=== PATIENT | male | born 1965 | race Caucasian/White ===

== ENCOUNTER 2018-02-12 00:41 | Outpatient (CLI) | payer MEDICARE, SELFPAY ==
--- NOTE | 2018-02-12 09:45 | DI.RAD_ITS ---
SYMPTOMS/DIAGNOSIS: PNEUMONIA. J18.9 PA AND LATERAL CHEST: Comparison 07/19/17. The heart is enlarged but stable. The pulmonary vasculature are within normal limits. Pacing wires are stable in position. Sternal wires are in place. The lungs are clear. No effusions or pneumothoraces are identified. The bones appear intact. IMPRESSION: Cardiomegaly. No acute pulmonary process.
== END 2018-02-12 01:01 ==
PROVIDERS: PCP Family Medicine; Visit Provider Family Medicine
DX: J18.9 Pneumonia, unspecified organism (principal); I51.7 Cardiomegaly; Z95.0 Presence of cardiac pacemaker
CPT/HCPCS: 71046

== ENCOUNTER → 2018-05-29 11:13 | Outpatient (BNVA) | payer MEDICARE, SELFPAY | PROVIDERS: PCP Family Medicine; Visit Provider Nurse Practitioner Family | DX: R69 Illness, unspecified (principal) ==

== ENCOUNTER 2018-05-29 12:12 | Outpatient (CLI) | payer MEDICARE, SELFPAY ==
[2018-05-29 12:38] LABS: HCT 39.2 % (40.0-50.0); HGB 13.3 g/dL (13.5-17.5); Mean Corp. HGB Concentration 33.9 g/dL (32.0-36.0); Mean Corpuscular Hemoglobin 30.7 pg (27.0-33.0); Mean Corpuscular Volume 90.5 fL (80-95); Mean Platelet Volume 9.1 fL (8.0-11.0); Platelet Count 270 x1000/uL (130-400); RBC 4.33 m/cumm (4.50-6.00); RBC Distribution Width 14.8 % (11.8-14.1); White Blood Cell Count 9.41 k/cumm (4.4-10.8)
[2018-05-29 13:30] LABS: Anion Gap 7.1 mmol/L (3-11); BUN 18 mg/dL (7-18); CO2 31.9 mmol/L (21.0-32.0); CREATININE 1.08 mg/dL (0.70-1.30); Calcium 9.5 mg/dL (8.5-10.1); Chloride 101 mmol/L (98-107); Glucose 149 mg/dL (70-100); Magnesium 2.1 mg/dL (1.8-2.4); NT-proBNP 1498 pg/mL; Potassium 4.6 mmol/L (3.5-5.1); Sodium 140 mmol/L (136-145); TSH 2.64 uIU/mL (0.358-3.74)
== END 2018-05-29 12:32 ==
PROVIDERS: PCP Family Medicine; Visit Provider Nurse Practitioner Family
DX: I10 Essential (primary) hypertension (principal); R06.02 Shortness of breath; I25.5 Ischemic cardiomyopathy; I25.10 Atherosclerotic heart disease of native coronary artery without angina pectoris; E11.9 Type 2 diabetes mellitus without complications; E78.5 Hyperlipidemia, unspecified; Z86.74 Personal history of sudden cardiac arrest; Z45.02 Encounter for adjustment and management of automatic implantable cardiac defibrillator; Z79.4 Long term (current) use of insulin
CPT/HCPCS: 36415; 80048; 85027; 93289; 83735; 83880; 84443; 99213

== ENCOUNTER 2018-08-08 14:09 | Emergency (ER) | payer MEDICARE, SELFPAY ==
[2018-08-08 14:11] VITALS: BP 127/73; PULSE 71; RESP 12; TEMP 36.8; O2SAT 95
--- NOTE | 2018-08-08 14:14 | W.ED.GENAD ---
Discharge Plan Disposition Patient Disposition: HOME Condition: Stable Discharge Details Chief Complaint: Laceration Clinical Impression: Laceration of hand, left Primary Care Provider: Beatrice Alcala ED Provider: Vicente Vallejo [place] Meds and New Rx's Prescriptions: No Action clopidogrel [Plavix] 75 MG tablet 75 mg PO DAILY RF: 0 aspirin [Aspir-81] 81 MG tablet,delayed release (DR/EC) 81 mg PO DAILY RF: 0 nitroglycerin 0.4 MG tablet, sublingual 0.4 mg Sublingual PRN RF: 0 spironolactone 25 MG tablet 25 mg PO DAILY RF: 0 isosorbide mononitrate 30 MG tablet extended release 24 hr 30 mg PO DAILY Qty: 30 RF: 0 atorvastatin [Lipitor] 80 MG tablet 40 mg PO DAILY RF: 0 FreeStyle Lite Strips 1 EACH strip AC & HS RF: 0 pen needle, diabetic [BD Ultra-Fine Short Pen Needle] 1 EACH needle 1 AC & HS RF: 0 carvedilol 12.5 MG tablet 12.5 mg PO BID RF: 0 amiodarone [Cordarone] 200 MG tablet 1 tab PO DAILY RF: 0 zolpidem 10 MG tablet 10 mg PO HS PRN PRNRF: 0 metolazone 2.5 MG tablet 2.5 mg PO DIRECTED Qty: 24 RF: 1 albuterol sulfate [ProAir HFA] 8.5 GM HFA aerosol inhaler 8.5 gm Inhalation QID PRN PRNQty: 1 RF: 0 Levemir FlexTouch U-100 Insuln 100 UNIT/ML insulin pen 30 units SQ HS RF: 0 furosemide [Lasix] 80 MG tablet 80 mg PO DAILY Qty: 30 RF: 3 lisinopril 2.5 MG tablet 2.5 mg PO DAILY Qty: 30 RF: 3 Discharge Instructions Instructions: Laceration (ED) Additional Instructions: if redness spreads down the hand or up the finger, or you have yellow/white discharge from the wound return to the emergency department for reevaluation return in 7-10 days to have the wound evaluated for suture removal Medical Decision Making 52 yo male comes in with laceration to the posterior left thumb at the mcp joint. he was using a paint scraper device about 2 hours ago and slipped and caused the lac, last tetnus vaccine 2015. Denies falling or other injuries. Has a 1.5cm laceration to the area, intact sensation, cap refill, and full rom so doubt neurovascular injury or tendon injury and lac only goes to the subcutaneous tissue. Will clsoe with sutures and d/c Differential Diagnosis lac, abrasion HPI General Mode of arrival: ambulatory. Date/Time Provider Initiated Documentation: 08/08/18 14:09. Limitations to Documentation: no limitations. Information obtained by: patient. History of Present Illness 52 year old M presents to the emergency department with the chief complaint of left thumb laceration, described as mild, and is localized to the left and upper extremity. Patient reports no radiation. Patient started experiencing this hour(s) (3) and it has been constant. No relieving factors improve symptom(s), No exacerbating factors reported . Patient notes no other symptoms.. Patient did receive the following treatments prior to arrival, none Related Data Home Medications Medication Instructions Recorded Confirmed aspirin [Aspir-81] 81 mg PO DAILY 08/14/13 05/30/18 clopidogrel [Plavix] 75 mg PO DAILY 08/14/13 05/30/18 nitroglycerin 0.4 mg SUBLINGUAL PRN 08/14/13 05/30/18 spironolactone 25 mg PO DAILY 04/24/14 05/30/18 isosorbide mononitrate 30 mg PO DAILY #30 tabcr 03/14/15 05/30/18 FreeStyle Lite Strips 07/03/15 05/30/18 amiodarone [Cordarone] 2 tab PO DAILY 07/03/15 05/30/18 atorvastatin [Lipitor] 40 mg PO DAILY 07/03/15 05/30/18 carvedilol 12.5 mg PO BID 07/03/15 05/30/18 pen needle, diabetic [BD 07/03/15 05/30/18 Ultra-Fine Short Pen Needle] zolpidem 10 mg PO HS PRN PRN 07/03/15 05/30/18 ProAir HFA 8.5 gm INHALATION QID PRN PRN #1 07/04/15 05/30/18 [email or web address].ad metolazone 2.5 mg PO DIRECTED #24 07/04/15 05/30/18 Levemir FlexTouch U-100 Insuln 30 units SQ HS 05/01/17 05/30/18 furosemide [Lasix] 80 mg PO DAILY #30 tab 05/03/17 05/30/18 lisinopril 2.5 mg PO DAILY #30 tab 05/03/17 05/30/18 Previous Rx's Medication Instructions Recorded isosorbide mononitrate 30 mg PO DAILY #30 tabcr 03/14/15 ProAir HFA 8.5 gm INHALATION QID PRN PRN #1 07/04/15 [email or web address].ad metolazone 2.5 mg PO DIRECTED #24 07/04/15 furosemide [Lasix] 80 mg PO DAILY #30 tab 05/03/17 lisinopril 2.5 mg PO DAILY #30 tab 05/03/17 Allergies Allergy/AdvReac Type Severity Reaction Status Date / Time No Known Allergies Allergy Unverified 08/08/18 14:14 General Stated Complaint: Laceration LEVI: 4 Review of Systems Review of Systems All systems reviewed & are unremarkable except as noted in HPI and below Constitutional Denies chills, Denies fever(s) and Denies weakness ENT Denies change in voice Cardiovascular Denies chest pain and Denies dyspnea Respiratory Denies dyspnea Gastrointestinal Denies abdominal pain, Denies nausea and Denies vomiting Musculoskeletal Denies joint swelling Neurologic Denies weakness [facility] Social History Smoking/Tobacco Use Status: Former Tobacco Use Drug use: Never Do you feel safe at home: Yes Do you feel safe in your relationship?: Yes Exam Const General: no acute distress Orientation: alert HENMT Head: normal to inspection Ears: external ears normal General nose exam: external nose normal Mouth: moist mucous membranes Eyes General: appearance normal, both eyes and all related structures Neck Neck: normal visual inspection Resp Effort & Inspection: normal respiratory effort and able to speak in complete sentences Cardio Rate: regular rate Skin General skin exam: no rashes or lesions noted Neuro General: alert and oriented x3 Extrem General: full ROM and normal capillary refill Psych Mental Status: mental status grossly normal Course Vital Signs Temperature 36.8 C 08/08/18 14:11 Pulse 71 08/08/18 14:11 Respiratory Rate 12 08/08/18 14:11 Blood Pressure 127/73 08/08/18 14:11 Pulse Oximetry 95 08/08/18 14:11 Temperature 36.8 C 08/08/18 14:11 Temperature Source Temporal Artery Scan 08/08/18 14:11 Pulse 71 08/08/18 14:11 Respiratory Rate 12 08/08/18 14:11 Respiratory Effort Non-Labored 08/08/18 14:13 Blood Pressure 127/73 08/08/18 14:11 Pulse Oximetry 95 08/08/18 14:11 Oxygen Delivery Method Room Air 08/08/18 14:11 Oxygen Flow Rate 0 08/08/18 14:11 Pain Level 0 08/08/18 14:11 Procedures Laceration Laceration 1: Site: hand Side (If applicable): left Size (cm): 1.5 Description: linear Depth: simple, single layer Local Anesthetic: Lidocaine 1% and with Epi Amount of anesthesia used (mL): 5 Pre-repair: wound explored, irrigated extensively and wound margins revised Skin layer closed with: nylon Size (cm): 5-0 Number of sutures: 2 Technique: simple, interrupted
--- NOTE | 2018-08-08 14:19 | ED.GENADUL_ITS ---
Discharge Plan Disposition Patient Disposition: HOME Condition: Stable Discharge Details Chief Complaint: Laceration Clinical Impression: Laceration of hand, left Primary Care Provider: Beatrice Alcala ED Provider: Vicente Vallejo [place] Meds and New Rx's Prescriptions: No Action clopidogrel [Plavix] 75 MG tablet 75 mg PO DAILY RF: 0 aspirin [Aspir-81] 81 MG tablet,delayed release (DR/EC) 81 mg PO DAILY RF: 0 nitroglycerin 0.4 MG tablet, sublingual 0.4 mg Sublingual PRN RF: 0 spironolactone 25 MG tablet 25 mg PO DAILY RF: 0 isosorbide mononitrate 30 MG tablet extended release 24 hr 30 mg PO DAILY Qty: 30 RF: 0 atorvastatin [Lipitor] 80 MG tablet 40 mg PO DAILY RF: 0 FreeStyle Lite Strips 1 EACH strip AC & HS RF: 0 pen needle, diabetic [BD Ultra-Fine Short Pen Needle] 1 EACH needle 1 AC & HS RF: 0 carvedilol 12.5 MG tablet 12.5 mg PO BID RF: 0 amiodarone [Cordarone] 200 MG tablet 1 tab PO DAILY RF: 0 zolpidem 10 MG tablet 10 mg PO HS PRN PRNRF: 0 metolazone 2.5 MG tablet 2.5 mg PO DIRECTED Qty: 24 RF: 1 albuterol sulfate [ProAir HFA] 8.5 GM HFA aerosol inhaler 8.5 gm Inhalation QID PRN PRNQty: 1 RF: 0 Levemir FlexTouch U-100 Insuln 100 UNIT/ML insulin pen 30 units SQ HS RF: 0 furosemide [Lasix] 80 MG tablet 80 mg PO DAILY Qty: 30 RF: 3 lisinopril 2.5 MG tablet 2.5 mg PO DAILY Qty: 30 RF: 3 Discharge Instructions Instructions: Laceration (ED) Additional Instructions: if redness spreads down the hand or up the finger, or you have yellow/white discharge from the wound return to the emergency department for reevaluation return in 7-10 days to have the wound evaluated for suture removal Medical Decision Making 52 yo male comes in with laceration to the posterior left thumb at the mcp joint. he was using a paint scraper device about 2 hours ago and slipped and caused the lac, last tetnus vaccine 2015. Denies falling or other injuries. Has a 1.5cm laceration to the area, intact sensation, cap refill, and full rom so doubt neurovascular injury or tendon injury and lac only goes to the subcutaneous tissue. Will clsoe with sutures and d/c Differential Diagnosis lac, abrasion HPI General Mode of arrival: ambulatory . Date/Time Provider Initiated Documentation: 08/08/18 14:09 . Limitations to Documentation: no limitations . Information obtained by: patient . History of Present Illness 52 year old M presents to the emergency department with the chief complaint of left thumb laceration, described as mild, and is localized to the left and upper extremity. Patient reports no radiation. Patient started experiencing this hour(s) (3) and it has been constant. No relieving factors improve symptom(s), No exacerbating factors reported . Patient notes no other symptoms.. Patient did receive the following treatments prior to arrival, none Related Data Home Medications Medication Instructions Recorded Confirmed aspirin [Aspir-81] 81 mg PO DAILY 08/14/13 05/30/18 clopidogrel [Plavix] 75 mg PO DAILY 08/14/13 05/30/18 nitroglycerin 0.4 mg SUBLINGUAL PRN 08/14/13 05/30/18 spironolactone 25 mg PO DAILY 04/24/14 05/30/18 isosorbide mononitrate 30 mg PO DAILY #30 tabcr 03/14/15 05/30/18 FreeStyle Lite Strips 07/03/15 05/30/18 amiodarone [Cordarone] 2 tab PO DAILY 07/03/15 05/30/18 atorvastatin [Lipitor] 40 mg PO DAILY 07/03/15 05/30/18 carvedilol 12.5 mg PO BID 07/03/15 05/30/18 pen needle, diabetic [BD 07/03/15 05/30/18 Ultra-Fine Short Pen Needle] zolpidem 10 mg PO HS PRN PRN 07/03/15 05/30/18 ProAir HFA 8.5 gm INHALATION QID PRN PRN #1 07/04/15 05/30/18 [email or web address].ad metolazone 2.5 mg PO DIRECTED #24 07/04/15 05/30/18 Levemir FlexTouch U-100 Insuln 30 units SQ HS 05/01/17 05/30/18 furosemide [Lasix] 80 mg PO DAILY #30 tab 05/03/17 05/30/18 lisinopril 2.5 mg PO DAILY #30 tab 05/03/17 05/30/18 Previous Rx's Medication Instructions Recorded isosorbide mononitrate 30 mg PO DAILY #30 tabcr 03/14/15 ProAir HFA 8.5 gm INHALATION QID PRN PRN #1 07/04/15 [email or web address].ad metolazone 2.5 mg PO DIRECTED #24 07/04/15 furosemide [Lasix] 80 mg PO DAILY #30 tab 05/03/17 lisinopril 2.5 mg PO DAILY #30 tab 05/03/17 Allergies Allergy/AdvReac Type Severity Reaction Status Date / Time No Known Allergies Allergy Unverified 08/08/18 14:14 General Stated Complaint: Laceration LEVI: 4 Review of Systems Review of Systems All systems reviewed & are unremarkable except as noted in HPI and below Constitutional Denies chills, Denies fever(s) and Denies weakness ENT Denies change in voice Cardiovascular Denies chest pain and Denies dyspnea Respiratory Denies dyspnea Gastrointestinal Denies abdominal pain, Denies nausea and Denies vomiting Musculoskeletal Denies joint swelling Neurologic Denies weakness REPLACED BY [facility] Social History Smoking/Tobacco Use Status: Former Tobacco Use Drug use: Never Do you feel safe at home: Yes Do you feel safe in your relationship?: Yes Exam Const General: no acute distress Orientation: alert HENMT Head: normal to inspection Ears: external ears normal General nose exam: external nose normal Mouth: moist mucous membranes Eyes General: appearance normal, both eyes and all related structures Neck Neck: normal visual inspection Resp Effort & Inspection: normal respiratory effort and able to speak in complete sentences Cardio Rate: regular rate Skin General skin exam: no rashes or lesions noted Neuro General: alert and oriented x3 Extrem General: full ROM and normal capillary refill Psych Mental Status: mental status grossly normal Course Vital Signs Temperature 36.8 C 08/08/18 14:11 Pulse 71 08/08/18 14:11 Respiratory Rate 12 08/08/18 14:11 Blood Pressure 127/73 08/08/18 14:11 Pulse Oximetry 95 08/08/18 14:11 Temperature 36.8 C 08/08/18 14:11 Temperature Source Temporal Artery Scan 08/08/18 14:11 Pulse 71 08/08/18 14:11 Respiratory Rate 12 08/08/18 14:11 Respiratory Effort Non-Labored 08/08/18 14:13 Blood Pressure 127/73 08/08/18 14:11 Pulse Oximetry 95 08/08/18 14:11 Oxygen Delivery Method Room Air 08/08/18 14:11 Oxygen Flow Rate 0 08/08/18 14:11 Pain Level 0 08/08/18 14:11 Procedures Laceration Laceration 1: Site: hand Side (If applicable): left Size (cm): 1.5 Description: linear Depth: simple, single layer Local Anesthetic: Lidocaine 1% and with Epi Amount of anesthesia used (mL): 5 Pre-repair: wound explored, irrigated extensively and wound margins re vised Skin layer closed with: nylon Size (cm): 5-0 Number of sutures: 2 Technique: simple, interrupted
== END 2018-08-08 14:35 | disposition home or self-care (01) ==
PROVIDERS: Emergency Provider Emergency Medicine; PCP Family Medicine
DX: S61.412A Laceration without foreign body of left hand, initial encounter (principal); W26.8XXA Contact with other sharp object(s), not elsewhere classified, initial encounter
CPT/HCPCS: 12001

== ENCOUNTER 2019-01-07 10:20 | Outpatient (REF) | payer MEDICARE, SELFPAY ==
[2019-01-07 14:14] LABS: COMMENT (LAB VIEW ONLY) 25.79 mg/dL; Microalb ug/mg Crea 15.5 ug/mg Cr
== END 2019-01-07 10:40 ==
LOC: NCHCN 10:20
PROVIDERS: PCP Family Medicine; Visit Provider Family Medicine
DX: E11.9 Type 2 diabetes mellitus without complications (principal)
CPT/HCPCS: 82043; 82570

== ENCOUNTER 2019-03-15 10:53 | Emergency (ER) | payer MEDICARE, SELFPAY ==
[2019-03-15] VITALS (26 sets, daily range): BP systolic 98–119; BP diastolic 72–82; PULSE 60–71; RESP 2–23; TEMP 37; O2SAT 95–100
--- NOTE | 2019-03-15 11:21 | ED.GENADUL_ITS ---
Discharge Plan Disposition Patient Disposition: AGAINST MEDICAL ADVICE Discharge Details Chief Complaint: SOB Clinical Impression: CHF exacerbation Primary Care Provider: Beatrice Alcala ED Provider: Lencho Kimbrough Home Meds and New Rx's Prescriptions: Continued clopidogrel [Plavix] 75 MG tablet 75 mg PO DAILY RF: 0 aspirin [Aspir-81] 81 MG tablet,delayed release (DR/EC) 81 mg PO DAILY RF: 0 nitroglycerin 0.4 MG tablet, sublingual 0.4 mg Sublingual PRN RF: 0 spironolactone 25 MG tablet 25 mg PO DAILY RF: 0 isosorbide mononitrate 30 MG tablet extended release 24 hr 30 mg PO DAILY Qty: 30 RF: 0 atorvastatin [Lipitor] 80 MG tablet 40 mg PO DAILY RF: 0 (DME) FreeStyle Lite Strips 1 EACH strip AC & HS RF: 0 (DME) pen needle, diabetic [BD Ultra-Fine Short Pen Needle] 1 EACH needle 1 AC & HS RF: 0 carvedilol 12.5 MG tablet 12.5 mg PO BID RF: 0 amiodarone [Cordarone] 200 MG tablet 1 tab PO DAILY RF: 0 zolpidem 10 MG tablet 10 mg PO HS PRN PRNRF: 0 metolazone 2.5 MG tablet 2.5 mg PO DIRECTED Qty: 24 RF: 1 albuterol sulfate [ProAir HFA] 8.5 GM HFA aerosol inhaler 8.5 gm Inhalation QID PRN PRNQty: 1 RF: 0 Levemir FlexTouch U-100 Insuln 100 UNIT/ML insulin pen 30 units SQ HS RF: 0 furosemide [Lasix] 80 MG tablet 80 mg PO DAILY Qty: 30 RF: 3 lisinopril 2.5 MG tablet 2.5 mg PO DAILY Qty: 30 RF: 3 Discharge Instructions Instructions: Heart Failure (ED), Against Medical Advice (ED) Additional Instructions: Please contact your primary care physician to arrange follow-up as soon as possible. Return to the ER at any time for further diagnostic work-up and treatment as recommended. Referrals: Beatrice Alcala MD [Primary Care Provider] - Discharge Data Discharge Date/Time-TO BE ENTERED AT DEPARTURE: 03/15/19 13:18 Medical Decision Making [id number]??53-year-old male with multiple medical problems including history of coronary artery disease status post multiple stents, CHF, ischemic cardiomyopathy, diabetes, hypertension, current smoker, here with shortness of breath over the past 3 days with associated cough. No chest pain. Screening ECG was reviewed and interpreted by me: Atrial rhythm 64 bpm, right bundle branch block is present, V2 is not available. Plan to repeat ECG. In comparison to prior ECG, no current available, ECG from 07/19/2017 does not reveal right bundle branch block. Consider pneumonia versus CHF versus COPD. Plan to give DuoNeb treatment. I will obtain chest x-ray and diagnostic labs. 13:04 --labs reviewed and elevated BNP noted. Chest x-ray interpreted by radiology:CM, mild increased interstitial markings. mild CHF Patient is on Lasix at home and has been taking as prescribed. I will give Lasix 20 mg IV now and plan for admission. I had a discussion with the patient about my diagnostic/treatment plan. Patient declines plan and wishes to leave against medical advise. I reiterated my concerns to the patient and explained the risks of leaving prior to completion of workup and treatment. I specifically emphasized the possibility of life- threatening or lifestyle modifying disease that would not be appropriately tr eated if they leave. Patient verbalized understanding of my concerns and the potential for life threatening or lifestyle modifying disease. Patient has capacity to make informed decision. I again explained my concerns and urged the patient to stay for treatment as outlined. Patient continued to refuse. I then discussed potential less ideal alternatives to diagnostic/treatment plan as outlines and patient refused. I recommended that the patient follow-up with primary care physician JONATHAN or return to the Emergency Department at any time for further treatment. I advised him to take double dose of Lasix over the next few days. I called and spoek with Dr. Serra who is is covering for PCP who reach out to patient to expedite followup. HPI General Mode of arrival: ambulatory . Date/Time Provider Initiated Documentation: 03/15/19 11:01 . Limitations to Documentation: no limitations . Information obtained by: patient . HPI Narrative: 53-year-old male with multiple medical problems including history of CHF, cirrhosis, coronary artery disease, ischemic cardiomyopathy, status post multiple coronary artery stents, diabetes, hypertension, hyperlipidemia, here with chief complaint of shortness of breath. Patient notes hard time breathing worsening over the past 3 days. Worse with exertion. He has no associated chest pain. He does have associated intermittently productive cough. He denies fever. No new swelling. Related Data Home Medications Medication Instructions Recorded Confirmed aspirin [Aspir-81] 81 mg PO DAILY 08/14/13 03/15/19 clopidogrel [Plavix] 75 mg PO DAILY 08/14/13 03/15/19 nitroglycerin 0.4 mg SUBLINGUAL PRN 08/14/13 03/15/19 spironolactone 25 mg PO DAILY 04/24/14 03/15/19 isosorbide mononitrate 30 mg PO DAILY #30 tabcr 03/14/15 03/15/19 FreeStyle Lite Strips 07/03/15 08/08/18 amiodarone [Cordarone] 1 tab PO DAILY 07/03/15 03/15/19 atorvastatin [Lipitor] 40 mg PO DAILY 07/03/15 03/15/19 carvedilol 12.5 mg PO BID 07/03/15 03/15/19 pen needle, diabetic [BD 07/03/15 08/08/18 Ultra-Fine Short Pen Needle] zolpidem 10 mg PO HS PRN PRN 07/03/15 03/15/19 albuterol sulfate [ProAir HFA] 8.5 gm INHALATION QID PRN PRN #1 07/04/15 03/15/19 hfa.aer.ad metolazone 2.5 mg PO DIRECTED #24 07/04/15 03/15/19 Levemir FlexTouch U-100 Insuln 30 units SQ HS 05/01/17 03/15/19 furosemide [Lasix] 80 mg PO DAILY #30 tab 05/03/17 03/15/19 lisinopril 2.5 mg PO DAILY #30 tab 05/03/17 03/15/19 Previous Rx's Medication Instructions Recorded isosorbide mononitrate 30 mg PO DAILY #30 tabcr 03/14/15 albuterol sulfate [ProAir HFA] 8.5 gm INHALATION QID PRN PRN #1 07/04/15 hfa.aer.ad metolazone 2.5 mg PO DIRECTED #24 07/04/15 furosemide [Lasix] 80 mg PO DAILY #30 tab 05/03/17 lisinopril 2.5 mg PO DAILY #30 tab 05/03/17 Allergies Allergy/AdvReac Type Severity Reaction Status Date / Time No Known Allergies Allergy Unverified 08/08/18 14:14 General Stated Complaint: SOB LEVI: 2 Review of Systems All systems reviewed & are unremarkable except as noted in HPI and below Constitutional Constitutional: Denies fever(s) Cardiovascular Cardiovascular: Denies chest pain and Reports dyspnea Respiratory Respiratory: Reports cough and Reports dyspnea Gastrointestinal Gastrointestinal: Reports other (Chronic intermittent abdominal fullness) PFS Social History Smoking/Tobacco Use Status: Current every day Tobacco Type: cigarettes Alcohol Intake: never Drug use: Never Substance use type: does not use Do you feel safe at home: Yes Do you feel safe in your relationship?: Yes Exam Const General: cooperative and no acute distress HENMT Mouth: moist mucous membranes Eyes Conjunctivae: normal conjunctivae Sclera: normal sclerae Neck Neck: trachea midline and supple Resp Effort & Inspection: normal respiratory effort Auscultation: rales, no rhonchi and wheezes Cardio Jugular venous pressure: no JVD Rate: regular rate and not tachycardic Rhythm: regular rhythm GI Palpation: soft, not firm, no guarding, no masses, not rigid and nontender Skin General skin exam: no rashes or lesions noted Neuro General: alert, awake, oriented x3 and tone normal Extrem General: no edema Psych Appearance: grossly normal Course Vital Signs Vital signs: Vital Signs Temperature 37.0 C 03/15/19 10:59 Pulse 71 03/15/19 10:59 Respiratory Rate 18 03/15/19 10:59 Blood Pressure 119/76 03/15/19 10:59 Pulse Oximetry 97 03/15/19 10:59 Temperature 37.0 C 03/15/19 10:59 Temperature Source Skin 03/15/19 10:59 Pulse 71 03/15/19 10:59 Respiratory Rate 18 03/15/19 10:59 Blood Pressure 119/76 03/15/19 10:59 Blood Pressure Position Sitting 03/15/19 10:59 Pulse Oximetry 97 03/15/19 10:59 Oxygen Delivery Method Room Air 03/15/19 10:59 Oxygen Flow Rate 0 03/15/19 10:59 Pain Level 5 03/15/19 10:59
[2019-03-15] MEDS: Albuterol/Ipratropium 3 ML UPD VIAL UPD (11:26)
[2019-03-15 11:34] LABS: Abs Immature Grans 0.02 k/cumm (0.0-0.09); Absolute Basophil Count 0.05 k/cumm (0.0-0.2); Absolute Eosinophil Count 0.22 k/cumm (0.0-0.7); Absolute Lymphocyte Count 2.46 k/cumm (1.2-3.4); Absolute Monocyte Count 1.07 k/cumm (0.11-0.7); Absolute Neutrophil Count 6.13 k/cumm (1.2-6.7); Basophils % 0.5; Eosinophils % 2.2; HCT 40.1 % (40.0-50.0); HGB 13.4 g/dL (13.5-17.5); Immature Grans % 0.2; Lymphocytes % 24.7; Mean Corp. HGB Concentration 33.4 g/dL (32.0-36.0); Mean Corpuscular Hemoglobin 31.2 pg (27.0-33.0); Mean Corpuscular Volume 93.3 fL (80-95); Mean Platelet Volume 9.3 fL (8.0-11.0); Monocytes % 10.8; Neutrophils % 61.6; Platelet Count 247 x1000/uL (130-400); RBC Distribution Width 15.5 % (11.8-14.1); White Blood Cell Count 9.95 k/cumm (4.4-10.8)
--- NOTE | 2019-03-15 11:39 | DI.RAD_ITS ---
EXAM: XR CHEST 2V PA AND LATERAL INDICATION: cough, SOB. COMPARISON: XR CHEST 2V PA LATERAL from 02/12/2018 TECHNIQUE: 2D digital imaging was performed. FINDINGS: The heart is enlarged. The pacing wires stable in position. Sternal wires are in place. No focal c onsolidating infiltrates are seen. There is mild prominence of the interstitium bilaterally. There is mild prominence of the pulmonary vasculature. No pleural effusions or pneumothoraces are identifi ed. Age-appropriate degenerative changes are seen in the spine. IMPRESSION: Question of mild CHF.
[2019-03-15 11:40] LABS: INR 1.1 (0.9-1.1); Prothrombin Time 10.9 sec (9.3-11.0)
[2019-03-15] MEDS: Albuterol/Ipratropium 3 ML UPD VIAL (11:58)
[2019-03-15 12:02] LABS: ALT 26 U/L (16-63); AST 20 U/L (15-37); Albumin 4.1 g/dL (3.4-5.0); Alkaline Phosphatase 60 U/L (46-116); Anion Gap 9.2 mmol/L (3-11); BUN 26 mg/dL (7-18); Bilirubin, Total 0.8 mg/dL (0.2-1.0); CO2 28.8 mmol/L (21.0-32.0); CREATININE 1.09 mg/dL (0.70-1.30); Calcium 9.2 mg/dL (8.5-10.1); Chloride 102 mmol/L (98-107); Glucose 165 mg/dL (74-106); NT-proBNP 3050 pg/mL (<300); Potassium 3.8 mmol/L (3.5-5.1); Sodium 140 mmol/L (136-145); Total Protein 8.1 g/dL (6.4-8.2)
[2019-03-15 12:55] LABS: Troponin I < 0.05 ng/Ml (<0.06)
[2019-03-15] MEDS: Furosemide 20 MG TAB PO (13:14)
== END 2019-03-15 13:18 | disposition left against medical advice (07) ==
PROVIDERS: Emergency Provider Student in an Organized Health Care Education/Training Program; PCP Family Medicine
DX: I50.9 Heart failure, unspecified (principal); I11.0 Hypertensive heart disease with heart failure; Z53.29 Procedure and treatment not carried out because of patient's decision for other reasons; E11.9 Type 2 diabetes mellitus without complications; Z79.4 Long term (current) use of insulin; I25.10 Atherosclerotic heart disease of native coronary artery without angina pectoris; Z95.5 Presence of coronary angioplasty implant and graft; F17.210 Nicotine dependence, cigarettes, uncomplicated
CPT/HCPCS: 36415; 80053; 93005; 94640; 99285; 71046; 83880; 84484; 85025; 85610; 93010; 99284; J7620

== ENCOUNTER 2019-03-18 07:43 | Outpatient (CLI) | payer MEDICARE, SELFPAY ==
[2019-03-18 09:00] LABS: HCT 41.5 % (40.0-50.0); HGB 13.6 g/dL (13.5-17.5); Mean Corp. HGB Concentration 32.8 g/dL (32.0-36.0); Mean Corpuscular Volume 94.5 fL (80-95); Mean Platelet Volume 10.4 fL (8.0-11.0); Platelet Count 244 x1000/uL (130-400); RBC 4.39 m/cumm (4.50-6.00); RBC Distribution Width 15.5 % (11.8-14.1)
[2019-03-18 09:29] LABS: BUN 29 mg/dL (7-18); CREATININE 1.24 mg/dL (0.70-1.30); Calcium 8.9 mg/dL (8.5-10.1); Chloride 97 mmol/L (98-107); Glucose 257 mg/dL (74-106); Potassium 4.3 mmol/L (3.5-5.1); Sodium 137 mmol/L (136-145)
[2019-03-18 09:34] LABS: Hemoglobin A1C 7.8 % (4.5-6.2)
== END 2019-03-18 08:03 ==
PROVIDERS: PCP Family Medicine; Visit Provider Family Medicine
DX: E11.9 Type 2 diabetes mellitus without complications (principal); I10 Essential (primary) hypertension; I50.9 Heart failure, unspecified
CPT/HCPCS: 36415; 80048; 85027; 83036

== ENCOUNTER 2019-04-05 10:48 | Outpatient (CLI) | payer MEDICARE, SELFPAY | END 2019-04-05 11:08 | PROVIDERS: PCP Family Medicine; Visit Provider Internal Medicine Cardiovascular Disease | DX: I25.5 Ischemic cardiomyopathy (principal); I25.10 Atherosclerotic heart disease of native coronary artery without angina pectoris; Z95.810 Presence of automatic (implantable) cardiac defibrillator; I50.23 Acute on chronic systolic (congestive) heart failure; I11.0 Hypertensive heart disease with heart failure; E78.5 Hyperlipidemia, unspecified | CPT/HCPCS: 99203; 99214; 93005; 93010 ==

== ENCOUNTER 2019-04-09 01:22 | Outpatient (CLI) | payer MEDICARE, SELFPAY ==
--- NOTE | 2019-04-09 13:55 | DI.US_ITS ---
APPROVED REPORT EXAM: Comprehensive 2D, Doppler, and color-flow Echocardiogram Patient Location: Out-Patient Program Clerk: Neha Romo RDCS (AE) Rhythm: NSR Indications: heart failure EF 25% in 04/2017 i50.9 53 yo with HReEF, CAD with ischemic CM. recent CHF exacerbation, last echo 04/2017 Conclusion Left Ventricle : The left ventricle is dilated. The left ventricle is severely dilated. Left ventricu lar systolic function is moderately decreased. There is normal left ventricular wall thickness. The p osterior wall thickness is severely increased. The septum is normal. There is global hypokinesis of t he left ventricle. There is septal flattening suggestive of RV pressure overload. There is grade 2 d iastolic dysfunction LVEF is estimated to be 25-35%. Right Ventricle : Right ventricle is dilated. Right ventricle is hypokinetic. A device wire was noted in the RV. Atria : Left atrium is mildly dilated. Right atrium is moderately dilated. Aortic Valve : Aortic valve is calcified. There is no aortic valvular stenosis. No significant aorti c regurgitation is present. Mitral Valve : Mitral valve leaflets are thickened. Severe mitral regurgitation. No evidence of j carlos l valve stenosis. Tricuspid Valve : The tricuspid valve leaflets are thickened , but open well. A device wire was note d in the RA. Moderate to severe tricuspid regurgitation. Great Vessels : IVC is normal in size and collapses >50% with inspiration. Estimated RVSP is 43-46 m mHg. Compared to echocardiogram dated 05/02/2017: There is no significant change. Wall motion Left Ventricle The left ventricle is dilated. The left ventricle is severely dilated. Left ventricular systolic func tion is moderately decreased. There is normal left ventricular wall thickness. The posterior wall thi ckness is severely increased. The septum is normal. There is global hypokinesis of the left ventricle . There is septal flattening suggestive of RV pressure overload. There is grade 2 diastolic dysfuncti on LVEF is estimated to be 25-35%. Right Ventricle Right ventricle is dilated. Right ventricle is hypokinetic. A device wire was noted in the RV. Atria Left atrium is mildly dilated. Right atrium is moderately dilated. Aortic Valve Aortic valve is calcified. There is no aortic valvular stenosis. No significant aortic regurgitation is present. Mitral Valve Mitral valve leaflets are thickened. No evidence of mitral valve stenosis. Severe mitral regurgitatio n Tricuspid Valve The tricuspid valve leaflets are thickened , but open well. A device wire was noted in the RA. Modera te to severe tricuspid regurgitation. Pulmonic Valve Pulmonic valve is not well visualized. Trivial pulmonic regurgitation. Great Vessels The aortic root is normal in size. The ascending aorta is normal in size. IVC is normal in size and c ollapses >50% with inspiration. Estimated RVSP is 43-46 mmHg. Pericardium There is no pericardial effusion. 2D Dimensions IVSd 1.00 cm M: 0.6-1.2 LV EDV A2C 238.00 mL PWd 1.05 cm M: 0.6 - 1.2 LV EDV A4C 277.60 mL LVDd 6.90 cm M: 4.2 - 5.8 LA Volume Index A2C 30.32 mL/m2 LVDs 5.75 cm M: 2.5 - 4.0 LA Volume Index A4C 39.67 mL/m2 Aortic Root 3.25 cm M: 3.1 - 3.7 LA Volume Index Biplane 35.04 mL/m2 RVID Base (AP4) 4.62 cm (M/F) 2.5-4.1 LA Area A4C 25.46 cm2 RA Area A4C 29.20 cm2 LA Area A2C 22.49 cm2 LVOT 2.10 cm (M/F) 1.5-2.5 EF AP4 34.94 % Ascending Aorta 3.24 cm M: 2.6 - 3.4 EF AP2 29.29 % LVEF (Teich) 34.40 % EF BP 32.22 % LVEF (Jimenez's) 32.22 % M: 52 - 72 LV Volume 187.93 mL M: 62 - 150 LV Volume Index 83.89 mL/m2 M: 34 - 74 FS 16.90 % LV Diastology E/A Ratio 1.8 MED E' 0.04 (>0.07 m/s) LV E/e MED 25.30 (<14) LAT E' 0.04 (>0.1 m/s) LV E/e LAT 25.30 (<14) Aortic Valve LVOT Area 3.51 cm2 LVOT Vmax 0.84 m/s LVOT Mean Jeet. 0.55 m/s LVOT Peak Gr. 2.8 mmHg LVOT Mean Gr. 1.4 mmHg AoV Area/ BSA (Vmax) 1.14 cm2/m2 LVOT VTI 0.133 m AoV Vmax 1.15 (0.5-1.3 m/s) MELLY Mean Jeet. Index 1.05 cm2/m2 AoV Mean Jeet. 0.82 m/s AoV Peak Grad 5.3 mmHg AoV Mean Grad 3.0 (<5 mmHg) AoV VTI 0.210 (0.18-0.25 m) AoV Area VTI 2.61 (2.5-4.5 cm2) AoV Area/ BSA (VTI) 1.16 cm/m2 Mitral Valve MV E Max Jeet. 0.89 (0.4-1.3 m/s) MV A Velocity 0.50 (0.4-1.3 m/s) E/A Ratio 1.65 MV Decel. Time 205.95 (160-240 msec) MV Regurg Volume 110.84 mL MV PHT 59.73 msec MV RF 66.87 % MVA PHT 3.65 cm2 Pulmonary Valve PV Peak Velocity 0.80 (0.5-1.5 m/s) Tricuspid Valve TR P. Velocity 3.29 m/s TV Regurg Vmax 3.29 m/s RAP Estimate 3.00 mmHg RVSP 46.30 mmHg TR P. Gradient 43.30 mmHg
== END 2019-04-09 01:42 ==
PROVIDERS: PCP Family Medicine; Visit Provider Family Medicine
DX: I50.9 Heart failure, unspecified (principal); I25.10 Atherosclerotic heart disease of native coronary artery without angina pectoris; I50.1 Left ventricular failure, unspecified; I25.5 Ischemic cardiomyopathy; I34.0 Nonrheumatic mitral (valve) insufficiency
CPT/HCPCS: 93306

== ENCOUNTER → 2019-04-24 13:06 | Outpatient (BNVA) | payer MEDICARE, SELFPAY | PROVIDERS: PCP Family Medicine; Referring Provider Family Medicine; Visit Provider Internal Medicine Cardiovascular Disease | DX: R69 Illness, unspecified (principal) ==

== ENCOUNTER 2019-04-24 13:23 | Outpatient (CLI) | payer MEDICARE, SELFPAY | END 2019-04-24 13:43 | PROVIDERS: PCP Family Medicine; Visit Provider Internal Medicine Cardiovascular Disease | DX: I25.5 Ischemic cardiomyopathy (principal); Z45.02 Encounter for adjustment and management of automatic implantable cardiac defibrillator; Z95.5 Presence of coronary angioplasty implant and graft | CPT/HCPCS: 93282; 99212; 93005; 93010; 99213 ==

== ENCOUNTER 2019-05-07 04:30 | Inpatient (IN) | payer MEDICARE, SELFPAY ==
[2019-05-07] VITALS (20 sets, daily range): BP systolic 94–121; BP diastolic 44–82; PULSE 65–84; RESP 1–24; TEMP 36–37; O2SAT 91–99
--- NOTE | 2019-05-07 04:48 | ED.GENADUL_ITS ---
Discharge Plan Disposition Patient Disposition: [facility] INPATIENT Condition: Poor Discharge Details Chief Complaint: SOB Clinical Impression: COPD exacerbation, CAP (community acquired pneumonia) Primary Care Provider: Beatrice Alcala ED Provider: Ricardo Petit Home Meds and New Rx's Prescriptions: No Action Jardiance 10 mg tablet 10 mg PO DAILY RF: 0 insulin aspart U-100 [Novolog Flexpen U-100 Insulin] 100 unit/mL (3 mL) insulin pen 4 unit SC TID RF: 0 metformin 500 mg tablet 500 mg PO BID RF: 0 cholecalciferol (vitamin D3) 25 mcg (1,000 unit) capsule 25 mcg PO DAILY RF: 0 clopidogrel [Plavix] 75 MG tablet 75 mg PO DAILY RF: 0 aspirin [Aspir-81] 81 MG tablet,delayed release (DR/EC) 81 mg PO DAILY RF: 0 nitroglycerin 0.4 MG tablet, sublingual 0.4 mg Sublingual PRN RF: 0 spironolactone 25 MG tablet 25 mg PO DAILY RF: 0 isosorbide mononitrate 30 MG tablet extended release 24 hr 30 mg PO DAILY Qty: 30 RF: 0 atorvastatin [Lipitor] 80 MG tablet 40 mg PO DAILY RF: 0 (DME) FreeStyle Lite Strips 1 EACH strip AC & HS RF: 0 (DME) pen needle, diabetic [BD Ultra-Fine Short Pen Needle] 1 EACH needle 1 AC & HS RF: 0 carvedilol 12.5 MG tablet 12.5 mg PO BID RF: 0 amiodarone [Cordarone] 200 MG tablet 1 tab PO DAILY RF: 0 zolpidem 10 MG tablet 10 mg PO HS PRN PRNRF: 0 metolazone 2.5 MG tablet 2.5 mg PO DIRECTED Qty: 24 RF: 1 albuterol sulfate [ProAir HFA] 8.5 GM HFA aerosol inhaler 8.5 gm Inhalation QID PRN PRNQty: 1 RF: 0 Levemir FlexTouch U-100 Insuln 100 UNIT/ML insulin pen 30 units SQ HS RF: 0 furosemide [Lasix] 80 MG tablet 80 mg PO DAILY Qty: 30 RF: 3 lisinopril 2.5 MG tablet 2.5 mg PO DAILY Qty: 30 RF: 3 Medical Decision Making Patient presenting with cough, shortness of breath, diaphoresis. Has diffuse wheezing. Denies having chest pain or pressure. EKG with old right bundle branch block. No acute changes. Suspect this is all respiratory and not cardiac. Will get laboratory studies and chest x-ray. Treat with nebulizers and steroids. Consider antibiotic. Patient laboratory studies are unremarkable. Normal white count. Negative troponin. Chest x-ray with probable right lower lobe infiltrate. Patient continues to have diffuse wheezing throughout although I do think he has better air exchange. Still appears to be tachypneic but not in distress. Doubtful that he will do well outpatient and has significant cardiac history with EF of only 25%. Will discuss with hospitalist for admission. Will give IV ceftriaxone and oral Zithromax here. Medical Records Medical records reviewed: Yes I reviewed the patient's medical records. Lab Data Lab results reviewed: Yes I reviewed the patient's lab results. ECG Data Attestation: I personally reviewed and interpreted this ECG (s) as follows: Prior ECG tracings: available for review Interpretation: Normal sinus rhythm at a rate of 84. First-degree block present. Right bundle branch block present. No change compared to EKG done just a couple of weeks ago. HPI General Mode of arrival: ambulatory . Date/Time Provider Initiated Documentation: 05/07/19 04:46 . Limitations to Documentation: no limitations . Information obtained by: patient, RN notes reviewed and old records reviewed . HPI Narrative: Patient presents to ED with complaint of shortness of breath. Patient denies having any chest pain or pressure. He does have an extensive cardiac history. He also has history of COPD and still smokes occasionally. Started to have a cough over the last 24 hours. He woke up around midnight short of breath and in a full sweat. He used his albuterol inhaler and took a shower and felt a little bit better. He is able to go back to sleep. Woke up a second time about 3 AM with shortness of breath and diaphoresis once again. Denied having any chest pain or pressure. Presents for evaluation. He has been taking his Lasix. He denies any leg edema. He denies any leg pain. Related Data Home Medications Medication Instructions Recorded Confirmed aspirin [Aspir-81] 81 mg PO DAILY 08/14/13 05/07/19 clopidogrel [Plavix] 75 mg PO DAILY 08/14/13 05/07/19 nitroglycerin 0.4 mg SUBLINGUAL PRN 08/14/13 05/07/19 spironolactone 25 mg PO DAILY 04/24/14 05/07/19 isosorbide mononitrate 30 mg PO DAILY #30 tabcr 03/14/15 05/07/19 FreeStyle Lite Strips 07/03/15 05/07/19 amiodarone [Cordarone] 1 tab PO DAILY 07/03/15 05/07/19 atorvastatin [Lipitor] 40 mg PO DAILY 07/03/15 05/07/19 carvedilol 12.5 mg PO BID 07/03/15 05/07/19 pen needle, diabetic [BD 07/03/15 05/07/19 Ultra-Fine Short Pen Needle] zolpidem 10 mg PO HS PRN PRN 07/03/15 05/07/19 albuterol sulfate [ProAir HFA] 8.5 gm INHALATION QID PRN PRN #1 07/04/15 05/07/19 [email or web address] metolazone 2.5 mg PO DIRECTED #24 07/04/15 05/07/19 Levemir FlexTouch U-100 Insuln 30 units SQ HS 05/01/17 05/07/19 furosemide [Lasix] 80 mg PO DAILY #30 tab 05/03/17 05/07/19 lisinopril 2.5 mg PO DAILY #30 tab 05/03/17 05/07/19 cholecalciferol (vitamin D3) 25 25 mcg PO DAILY 04/05/19 05/07/19 mcg (1,000 unit) capsule empagliflozin 10 mg tablet 10 mg PO DAILY 04/05/19 05/07/19 insulin aspart U-100 100 unit/mL 4 unit SC TID ml 04/05/19 05/07/19 (3 mL) subcutaneous pen metformin 500 mg tablet 500 mg PO BID 04/05/19 05/07/19 Previous Rx's Medication Instructions Recorded isosorbide mononitrate 30 mg PO DAILY #30 tabcr 03/14/15 albuterol sulfate [ProAir HFA] 8.5 gm INHALATION QID PRN PRN #1 07/04/15 hfa.aer.ad metolazone 2.5 mg PO DIRECTED #24 07/04/15 furosemide [Lasix] 80 mg PO DAILY #30 tab 05/03/17 lisinopril 2.5 mg PO DAILY #30 tab 05/03/17 Allergies Allergy/AdvReac Type Severity Reaction Status Date / Time No Known Allergies Allergy Unverified 05/07/19 05:24 General LEVI: 2 Review of Systems Narrative: 01/21 Review of Systems completed and is negative except as stated above in HPI (Systems reviewed: Const, Eyes, ENT, Resp, CV, GI, , MSK, Skin, Neuro) [facility] Medical History CHF (congestive heart failure) (Acute 04/24/14) Cirrhosis (Suspected 04/24/14) a. possibility raised on CT scan 04/24/2014 COPD (chronic obstructive pulmonary disease) (Suspected) Coronary artery disease (Chronic) a. Ischemic cardiomyopathy with an EF of 30%. b. S/P multiple PCI and stents. c. Ventricular fibrillation arrest in September [address]-Elevation Myocardial infarction. d. S/P coronary artery bypass graft x 2011 e. S/P ICD placement for low EF in 2011. f. drug eluting stent 08/2013 Diabetes mellitus, type 2 (Chronic) Dyspnea (Acute) H/O cardiac arrest (Chronic) History of ventricular tachycardia (Acute) Hyperlipidemia (Chronic) Hypertension (Chronic) Ischemic cardiomyopathy (Acute 04/24/14) Tobacco abuse (Chronic) Unstable angina (Acute) Surgical History AICD (automatic cardioverter/defibrillator) present (Chronic) S/P appendectomy (Inactive) S/P CABG (coronary artery bypass graft) (Chronic) S/P cholecystectomy (Inactive) Social History Smoking/Tobacco Use Status: Current every day Tobacco Type: cigarettes Years smoked: 25 Alcohol Intake: former Drug use: Never Substance use type: does not use What type of physical activity do you participate in: independent ambulation and other Details: patient has a physically demanding job with a lot of walking Do you feel safe at home: Yes Do you feel safe in your relationship?: Yes Exam Narrative Exam Narrative: Vitals: Afebrile. Vital signs normal. Room air pulse oximetry low 90. Const: WDWN male in NAD. HEENT: NC/AT. Normal facial exam. Normal OP. Eyes: Normal conjunctiva and sclera. Neck: Supple. Trachea midline. Lungs: Normal respiratory effort. Lungs with few rhonchi present. Diffuse wheezing throughout. Fair air exchange present. Cor: RRR without murmur/gallop. Good radial pulses. GI: Soft. NT/ND. No guarding or rebound. Neuro: A+O x 3. Normal speech, gait, mentation. Cranial nerves grossly intact. No gross motor or sensory deficit. Ext: No C/C/E. No calf tenderness. Skin: Warm and dry without rash.
[2019-05-07 05:07] LABS: Abs Immature Grans 0.02 k/cumm (0.0-0.09); Absolute Basophil Count 0.06 k/cumm (0.0-0.2); Absolute Eosinophil Count 0.13 k/cumm (0.0-0.7); Absolute Monocyte Count 0.99 k/cumm (0.11-0.7); Absolute Neutrophil Count 5.45 k/cumm (1.2-6.7); Basophils % 0.8; Eosinophils % 1.7; HCT 40.2 % (40.0-50.0); HGB 13.7 g/dL (13.5-17.5); Immature Grans % 0.3 %; Lymphocytes % 14.2; Mean Corp. HGB Concentration 34.1 g/dL (32.0-36.0); Mean Corpuscular Hemoglobin 31.4 pg (27.0-33.0); Mean Platelet Volume 9.6 fL (8.0-11.0); Monocytes % 12.8; Neutrophils % 70.2; Platelet Count 213 x1000/uL (130-400); RBC 4.37 m/cumm (4.50-6.00); RBC Distribution Width 15.2 % (11.8-14.1); White Blood Cell Count 7.75 k/cumm (4.4-10.8)
[2019-05-07] MEDS: Albuterol 2.5 MG/3 ML INH SOLN VIAL UPD (05:07)
[2019-05-07] MEDS: Albuterol/Ipratropium 3 ML UPD VIAL UPD ×4 (05:08→23:17)
[2019-05-07] MEDS: methylPREDNISolone SUCC 125 MG VIAL IVP (05:08)
--- NOTE | 2019-05-07 05:25 | DI.RAD_ITS ---
EXAM: XR CHEST 2V PA LATERAL INDICATION: cough, SOB. COMPARISON: XR CHEST 2V PA LATERAL from 02/12/2018 XR CHEST 2V PA LATERAL from 03/15/2019 TECHNIQUE: 2D digital imaging was performed. FINDINGS: The heart is markedly enlarged. Sternal wires and pacemaker are again noted. There is vascular prom inence which could be chronic. Mild pulmonary edema or bronchial inflammation are possibilities. No effusions are seen. IMPRESSION: Question of mild CHF.
[2019-05-07 05:30] LABS: ALT 23 U/L (16-63); AST 15 U/L (15-37); Albumin 3.8 g/dL (3.4-5.0); Alkaline Phosphatase 65 U/L (46-116); Anion Gap 12.1 mmol/L (3-11); BUN 18 mg/dL (7-18); Bilirubin, Total 0.5 mg/dL (0.2-1.0); CO2 25.9 mmol/L (21.0-32.0); CREATININE 0.99 mg/dL (0.70-1.30); Calcium 8.6 mg/dL (8.5-10.1); Chloride 100 mmol/L (98-107); Glucose 165 mg/dL (74-106); Magnesium 1.8 mg/dL (1.8-2.4); Potassium 3.6 mmol/L (3.5-5.1); Sodium 138 mmol/L (136-145); Total Protein 7.3 g/dL (6.4-8.2); Troponin I < 0.05 ng/Ml (<0.06)
--- NOTE | 2019-05-07 05:41 | DI.VRAD_ITS ---
PROCEDURE INFORMATION: Exam: XR Chest, 2 Views Exam date and time: 05/07/2019 4:56 AM Age: 53 years old Clinical indication: Cough and shortness of breath and other: General malise; Prior surgery; Surgery date: 6+ months; Surgery type: Pacemaker and stent TECHNIQUE: Imaging protocol: XR of the chest Views: 2 views. COMPARISON: CR XR CHEST 2V PA LATERAL 03/15/2019 11:39 AM FINDINGS: Lungs: Mild central interstitial prominence may reflect bronchial inflammation. Equivocal airspace disease noted right lower lobe may reflect superimposed pneumonia. Pleural space: Unremarkable. No pleural effusion. No pneumothorax. Heart/Mediastinum: Unremarkable. No cardiomegaly. Bones/joints: Unremarkable. IMPRESSION: 1. Mild central interstitial prominence may reflect bronchial inflammation. 2. Equivocal airspace disease noted right lower lobe may reflect superimposed pneumonia. Dictated and Authenticated by: Michael Carrasco MD. Ordering:LUKASZ Silva MD
--- NOTE | 2019-05-07 06:27 | W.PM.HP.N ---
Date of service: 05/07/19 Time of Service: 06:27 Assessment and Plan Assessment and plan (1) COPD (chronic obstructive pulmonary disease): Status: Chronic Assessment and plan: COPD exacerbation, possible pneumonia. Will continue antibiotics, steroids and updrafts. Otherwise usual meds as is. History of Present Illness History of Present Illness Chief Complaint: SOB Narrative: 53 male smoker with h/o COPD, comes in with 1 day SOB, wheeze and cough. In ER findings of note for diffuse wheezing, possible RLL pneumonitis. Given Rocephoin and Zithromax, Duonebs and steroids. States he feels modestly improved. Admitted for further management. Review of Systems All systems reviewed & are unremarkable except as noted in HPI and below PFSH Medical History CHF (congestive heart failure) (Acute 04/24/14) Cirrhosis (Suspected 04/24/14) a. possibility raised on CT scan 04/24/2014 COPD (chronic obstructive pulmonary disease) (Suspected) Coronary artery disease (Chronic) a. Ischemic cardiomyopathy with an EF of 30%. b. S/P multiple PCI and stents. c. Ventricular fibrillation arrest in September [address]-Elevation Myocardial infarction. d. S/P coronary artery bypass graft x 2011 e. S/P ICD placement for low EF in 2011. f. drug eluting stent 08/2013 Diabetes mellitus, type 2 (Chronic) Dyspnea (Acute) H/O cardiac arrest (Chronic) History of ventricular tachycardia (Acute) Hyperlipidemia (Chronic) Hypertension (Chronic) Ischemic cardiomyopathy (Acute 04/24/14) Tobacco abuse (Chronic) Unstable angina (Acute) Surgical History AICD (automatic cardioverter/defibrillator) present (Chronic) S/P appendectomy (Inactive) S/P CABG (coronary artery bypass graft) (Chronic) S/P cholecystectomy (Inactive) Social History Smoking/Tobacco Use Status: Current every day Tobacco Type: cigarettes Years smoked: 25 Alcohol Intake: former Drug use: Never Substance use type: does not use What type of physical activity do you participate in: independent ambulation and other Details: patient has a physically demanding job with a lot of walking Do you feel safe at home: Yes Do you feel safe in your relationship?: Yes Meds Home Medications and Allergies Home Medications Medication Instructions Recorded Confirmed Type aspirin [Aspir-81] 81 mg PO DAILY 08/14/13 05/07/19 History clopidogrel [Plavix] 75 mg PO DAILY 08/14/13 05/07/19 History nitroglycerin 0.4 mg SUBLINGUAL PRN 08/14/13 05/07/19 History spironolactone 25 mg PO DAILY 04/24/14 05/07/19 History isosorbide mononitrate 30 mg PO DAILY #30 tabcr 03/14/15 05/07/19 Rx FreeStyle Lite Strips 07/03/15 05/07/19 History amiodarone [Cordarone] 1 tab PO DAILY 07/03/15 05/07/19 History atorvastatin [Lipitor] 40 mg PO DAILY 07/03/15 05/07/19 History carvedilol 12.5 mg PO BID 07/03/15 05/07/19 History pen needle, diabetic [BD 07/03/15 05/07/19 History Ultra-Fine Short Pen Needle] zolpidem 10 mg PO HS PRN PRN 07/03/15 05/07/19 History albuterol sulfate [ProAir HFA] 8.5 gm INHALATION QID PRN PRN #1 07/04/15 05/07/19 Rx hfa.aer.ad metolazone 2.5 mg PO DIRECTED #24 07/04/15 05/07/19 Rx Levemir FlexTouch U-100 Insuln 30 units SQ HS 05/01/17 05/07/19 History furosemide [Lasix] 80 mg PO DAILY #30 tab 05/03/17 05/07/19 Rx lisinopril 2.5 mg PO DAILY #30 tab 05/03/17 05/07/19 Rx cholecalciferol (vitamin D3) 25 25 mcg PO DAILY 04/05/19 05/07/19 History mcg (1,000 unit) capsule empagliflozin 10 mg tablet 10 mg PO DAILY 04/05/19 05/07/19 History insulin aspart U-100 100 unit/mL 4 unit SC TID ml 04/05/19 05/07/19 History (3 mL) subcutaneous pen metformin 500 mg tablet 500 mg PO BID 04/05/19 05/07/19 History Allergies Allergy/AdvReac Type Severity Reaction Status Date / Time No Known Allergies Allergy Unverified 05/07/19 05:24 Exam Narrative Exam Narrative: 100/58, 66, 17, 36.8, 96% RA. HEENT AT/NC; neck supple; lungs diffise wheeze, heart distant but RRR; abdomen soft and NT; extremities w/o edema; neuro Ox3, non-focal Results Labs Result diagrams: 05/07/19 04:50 05/07/19 04:50 Labs: Laboratory Results - last 24 hr 05/07/19 05/07/19 04:50 04:50 WBC 7.75 RBC 4.37 L Hgb 13.7 Hct 40.2 MCV 92.0 MCH 31.4 MCHC 34.1 RDW 15.2 H Plt Count 213 MPV 9.6 Immature Gran % 0.3 Neutrophils % 70.2 Lymphocytes % 14.2 Monocytes % 12.8 Eosinophils % 1.7 Basophils % 0.8 Absolute Neutrophils 5.45 Absolute Lymphocytes 1.10 L Absolute Monocytes 0.99 H Absolute Eosinophils 0.13 Absolute Basophils 0.06 Sodium 138 Potassium 3.6 Chloride 100 Carbon Dioxide 25.9 Anion Gap 12.1 H BUN 18 Creatinine 0.99 Estimated GFR/1.73 m2 >= 60.00 Glucose 165 H Calcium 8.6 Magnesium 1.8 Total Bilirubin 0.5 AST 15 ALT 23 Alkaline Phosphatase 65 Troponin I < 0.05 Total Protein 7.3 Albumin 3.8 Last Vital Signs Temp 36.8 C 05/07/19 04:52 Pulse 66 05/07/19 05:46 Resp 17 05/07/19 05:46 BP 100/58 L 05/07/19 05:46 Pulse Ox 96 05/07/19 05:46
[2019-05-07] MEDS: Azithromycin 250 MG TAB 500 MG PO (06:35)
[2019-05-07] MEDS: cefTRIAXone 1 GM/50 ML BAG IVPB (06:35)
[2019-05-07] MEDS: Insulin Aspart 300 UNITS/3 ML PEN SC ×3 (09:22→17:19)
[2019-05-07] MEDS: DOXYCYCLINE 100 MG in Normal Saline 100 ML IVPB ×2 (09:22→21:20)
--- NOTE | 2019-05-07 10:19 | PHARADMIT ---
Admission Pharmacy Clinical Review COPD Code Status Full Code Current Weight 108.6 kg Renally Cleared and Narrow Therapeutic Index Meds Crcl ~104.8 mL/min using adjusted body weight current meds okay QTc Value / Action Taken QTc 544 pt given dose azithromycin this morning, on amiodarone at home, has albuterol ordered BP Control, Fever BP 10/ afebrile Electrolytes reviewed within normal limits DVT Prophylaxis none, on antiplatelets Opiate Usage / Scheduled Bowel Regimen Ordered no/no Plt/SCr for Heparin / Enoxaparin plt 213 SCr 0.99 INR for Warfarin n/a H/H stable, WBC/Bands h/h 13.7/40.2 wbc 7.75 Antibiotic appropriateness ceftriaxone and doxy to cover for possible pneumonia Cultures and Sensitivities none Surgical ABX d/c within 24 hr n/a DM control / Insulin Dosing BG 165 scheduled detemir and sliding scale aspart Heart Failure (Check EF%) (ENEIDA's, B-Block, Diuretics) carvedilol, furosemide, lisinopril, spironolactone IV to PO Switch n/a Home Meds Reviewed -carvedilol may diminish the bronchodilatory effect of albuterol. recommended to avoid use of non-selective beta sherrie or monitor closely for diminished effects -empaglifozin may enhance the hypoglycemic effects of insulin. consider decreased insulin dosing when initiating empaglifozin and monitor for hypoglycemia Home Meds Not Ordered amiodarone, cholecalciferol, metolazone, nitroglycerin Comments watch for the addition of any QTc prolonging meds and electrolyte changes that may influence these (K+,mag)
[2019-05-07] MEDS: guaiFENesin 600 MG TABCR PO (12:06)
[2019-05-07] MEDS: Lactobacillus Acidophilus CAP 1 CAP PO ×2 (13:07→21:20)
[2019-05-07] MEDS: methylPREDNISolone SUCC 40 MG VIAL IVP ×2 (13:07→21:21)
[2019-05-07] MEDS: Normal Saline Flush 10 ML SYR IVP ×2 (13:08→21:21)
--- NOTE | 2019-05-07 15:45 | W.INDIABCONS ---
Date of service: 05/07/19 Time of Service: 15:45 Diabetes Inpatient Consult DESCRIPTION/ASSESSMENT: Appreciate diabetes consult for Mr. Elmore who is hospitalized with COPD. BMI 35 with A1c 7.8 up from previous A1c. Mr. Elmore has blood [id number] and increase as the day progresses. He receives his usual insulin of 30u Levemir, Jardiance, Metformin. Here he receives sensitive insulin correction with meals while at home he receives 4u Novolog with meals. He is on 40mg Methylprednisoline every 8 hours. INTERVENTION: Suggest adding resistant insulin correction or NPH with prednisone dose to track resulting hyperglycemia. Given that his fasting blood sugar recovers from hyperglycemia of previous day, increasing Levimir may not be advisable although he is on a longer lasting steroid. PLAN: Suggest adding NPH or Levemir in the morning to address steroid induced hyperglycemia. Will follow blood sugars and visit in the [facility]. Time Spent in Nutritional Counseling and Treatment: 0 face to face
--- NOTE | 2019-05-07 16:20 | INITIAL_ITS ---
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 Surgical: appendectomy, laparoscopic cholecystectomy. PREVIOUS FUNCTIONAL STATUS/SOCIAL/FAMILY SUPPORTS:: Evan is he has 6 living sons. Evan lives in [place], [place] and describes a good support system. Evan had an MS at the age of 38 and has been disabled. He does like to keep busy, he is independent with ADL's and all other activities. He denies community supports he is disabled, receives SSI and until recently he had Medicaid. Evan has not been able to afford his medications due to loss of insurance. CURRENT FUNCTIONAL STATUS:: Evan is enaged during assessment he describes his goal of smoking cessation he states Chantex has helped him in the past however, his insurance no longer covers it. He does report he has been cutting back. Evan likes to stay busy and does not sit well in the hospital. He does report his breathing has improved since admission. Evan states he is having difficulty affording his medicaitons due to insurance changes. Evan states he did not change any of his coverage so he is unsure why he is having a larger pharmacy bill. CM will verify active medicaid and if needed assist with application. ADVANCE DIRECTIVES:: On file at [facility] DPOA of [place]: Sherri Teague as agent and Zechariah Elmore as alternate. Has patient been provided with information about the portal?: Yes Did the patient sign up for the portal?: No CODE STATUS:: Full Code INSURANCE COVERAGE / FINANCIAL ISSUES:: Medicare PRIMARY CARE PHYSICIAN:: POTENTIAL DISCHARGE NEEDS:: Scheduled primary care appointment prior to discharge PATIENT/FAMILY EDUCATION NEEDS:: Discharge plan, limitations, follow up plan of care including ask me three and self management ANTICIPATED BARRIERS TO DISCHARGE:: Medications and access to resources to afford medications. TRANSPORTATION:: Via private car with family at time of discharge PLAN:: Evan is receiving IV abx, steroids, and resp support. Evan will be discharged home when medically ready. CM to continue to provide support including assistance to medication resources.
[2019-05-07] MEDS: metFORMIN 500 MG TAB PO (17:19)
[2019-05-07] MEDS: Carvedilol 12.5 MG TAB PO (21:20)
[2019-05-07] MEDS: Zolpidem 10 MG TAB PO (23:17)
[2019-05-08] MEDS: Albuterol/Ipratropium 3 ML UPD VIAL UPD (05:57)
[2019-05-08] MEDS: Normal Saline Flush 10 ML SYR IVP ×2 (05:58→08:19)
[2019-05-08] MEDS: cefTRIAXone 1 GM/50 ML BAG IVPB (05:58)
[2019-05-08] MEDS: methylPREDNISolone SUCC 40 MG VIAL IVP (05:58)
[2019-05-08 07:00] VITALS: BP 131/85; PULSE 87; RESP 18; TEMP 36.6; O2SAT 95
[2019-05-08] MEDS: Insulin Aspart 300 UNITS/3 ML PEN SC (08:16)
[2019-05-08] MEDS: Atorvastatin 40 MG TAB PO (08:17)
[2019-05-08] MEDS: Clopidogrel 75 MG TAB PO (08:17)
[2019-05-08] MEDS: metFORMIN 500 MG TAB PO (08:17)
[2019-05-08] MEDS: Aspirin E.C. 81 MG TABEC PO (08:17)
[2019-05-08] MEDS: Furosemide 80 MG TAB PO (08:18)
[2019-05-08] MEDS: Lisinopril 5 MG TAB 2.5 MG PO (08:18)
[2019-05-08] MEDS: Spironolactone 25 MG TAB PO (08:18)
[2019-05-08] MEDS: Carvedilol 12.5 MG TAB PO (08:18)
[2019-05-08] MEDS: Lactobacillus Acidophilus CAP 1 CAP PO (08:18)
[2019-05-08] MEDS: Isosorbide Mononitrate 30 MG TABCR PO (08:19)
[2019-05-08] MEDS: DOXYCYCLINE 100 MG in Normal Saline 100 ML IVPB (08:19)
--- NOTE | 2019-05-08 09:57 | W.PM.DS.N ---
Date of service: 05/08/19 Time of Service: 09:57 DS: Diagnosis Discharge Diagnosis (1) COPD (chronic obstructive pulmonary disease): Status: Chronic Discharge Plan Disposition Patient Disposition: HOME Condition: Improving Discharge Details Chief Complaint: SOB Clinical Impression: COPD exacerbation, CAP (community acquired pneumonia) Reason For Visit: COPD Admit Date/Time: 05/07/19 06:33 Admit Provider: Ruslan Sewell Attending Provider: Ruslan Sewell Primary Care Provider: Beatrice Alcala ED Provider: Ricardo Petit [facility] Course Hospital Course: This is a 53 male smoker with past medical history significant for COPD, who presented to the ED with a 1 day history of shortness of breath, wheeze and cough. Work up in the ED shows a possible RLL pneumonitis. He was given Rocephoin and Zithromax, Duonebs and steroids. He was referred for inpatient treatment and was accepted by hospitalist services. he was given doxycycline and azithromycin discontinued on admission. he has remained afebrile and hemodynamically stable. He reports his breathing is markedly improved. he is eating and drinking and bowels and bladder functioning well. He reports that he has not been able to obtain all his medications outpatient so case management working with him on resources. He has been oxygenating well on room air. he will be discharged to home to continue a steroid taper, and 5 more daylys of doxycycline and cefpodoxime to complete a 7 day course. Home Meds and New Rx's Prescriptions: New doxycycline hyclate 100 mg capsule 100 mg PO BID Qty: 10 RF: 0 prednisone 10 mg tablet 40 mg PO DAILY Qty: 40 RF: 0 cefpodoxime 200 mg tablet 200 mg PO BID Qty: 10 RF: 0 Continued Jardiance 10 mg tablet 10 mg PO DAILY RF: 0 insulin aspart U-100 [Novolog Flexpen U-100 Insulin] 100 unit/mL (3 mL) insulin pen 4 unit SC TID RF: 0 metformin 500 mg tablet 500 mg PO BID RF: 0 cholecalciferol (vitamin D3) 25 mcg (1,000 unit) capsule 25 mcg PO DAILY RF: 0 clopidogrel [Plavix] 75 MG tablet 75 mg PO DAILY RF: 0 aspirin [Aspir-81] 81 MG tablet,delayed release (DR/EC) 81 mg PO DAILY RF: 0 nitroglycerin 0.4 MG tablet, sublingual 0.4 mg Sublingual PRN RF: 0 spironolactone 25 MG tablet 25 mg PO DAILY RF: 0 isosorbide mononitrate 30 MG tablet extended release 24 hr 30 mg PO DAILY Qty: 30 RF: 0 atorvastatin [Lipitor] 80 MG tablet 40 mg PO DAILY RF: 0 (DME) FreeStyle Lite Strips 1 EACH strip AC & HS RF: 0 (DME) pen needle, diabetic [BD Ultra-Fine Short Pen Needle] 1 EACH needle 1 AC & HS RF: 0 carvedilol 12.5 MG tablet 12.5 mg PO BID RF: 0 amiodarone [Cordarone] 200 MG tablet 1 tab PO DAILY RF: 0 zolpidem 10 MG tablet 10 mg PO HS PRN PRNRF: 0 metolazone 2.5 MG tablet 2.5 mg PO DIRECTED Qty: 24 RF: 1 albuterol sulfate [ProAir HFA] 8.5 GM HFA aerosol inhaler 8.5 gm Inhalation QID PRN PRNQty: 1 RF: 0 Levemir FlexTouch U-100 Insuln 100 UNIT/ML insulin pen 30 units SQ HS RF: 0 furosemide [Lasix] 80 MG tablet 80 mg PO DAILY Qty: 30 RF: 3 lisinopril 2.5 MG tablet 2.5 mg PO DAILY Qty: 30 RF: 3 Discharge Instructions Instructions: COPD (Chronic Obstructive Pulmonary Disease) (DC), Bacterial Pneumonia (DC) Additional Instructions: take all your medications as prescribed even if you feel better. drink at least 6-8 glasses of water daily to stay well hydrated. Stand Alone Forms: Nursing Discharge Form Referrals: Beatrice Alcala MD [Primary Care Provider] - 05/15/19 9:50 am Activity:: Activity as Tolerated Equipment/Supplies:: No Equipment Needed Diet:: Carb Counting Discharge Orders Discharge Orders: Discharge Order (Routine); Ordered 05/08/19 Ordered By: Manisha Angulo Discharge Data Discharge Date/Time-TO BE ENTERED AT DEPARTURE: 05/08/19 11:45 DS: Summary Status at Discharge Functional status at discharge: independent ambulation Overall status at discharge: patient is progressing back to baseline Mental Status: mental status grossly normal Speech and Movement: speech and movement normal Mood: congruent mood Affect: normal affect Exam Const General: cooperative, comfortable, no acute distress, disheveled and ill appearing (older than stated age) chronically Nutritional Appearance: overweight Orientation: alert, awake and oriented x3 HENMT Head: normal to inspection, normocephalic and atraumatic Mouth: oral mucosae normal Resp Effort & Inspection: normal respiratory effort Auscultation: rhonchi (throughout) Cardio Rate: regular rate Rhythm: regular rhythm GI Inspection: normal to inspection Palpation: soft Auscultation: normal bowel sounds Skin General skin exam: no rashes or lesions noted Neuro General: alert, awake and oriented x3 Cranial Nerves: CN's II-XI intact bilaterally Cognition: normal cognition Speech: speech normal Gait: normal gait Extrem General: normal to inspection, full ROM and no pedal edema Psych Mental Status: mental status grossly normal Speech and Movement: speech and movement normal Mood: congruent mood Affect: normal affect DS: Data Vitals/I&O Vitals and I&O: Vital Signs Temperature 36.6 C 05/08/19 07:00 Temperature Source Tympanic 05/08/19 07:00 Pulse 87 05/08/19 07:00 Pulse Rhythm Regular 05/08/19 08:26 Pulse 67 05/07/19 06:46 Respiratory Rate 18 05/08/19 07:00 Respiratory Effort Non-Labored 05/08/19 08:26 Respiratory Depth Normal 05/08/19 08:26 Respiratory Pattern Normal 05/08/19 08:26 Blood Pressure 131/85 05/08/19 07:00 Blood Pressure Mean 63 05/07/19 06:46 Blood Pressure Position Sitting 05/07/19 04:52 Pulse Oximetry 95 05/08/19 07:00 Oxygen Delivery Method Room Air 05/08/19 07:00 Oxygen Flow Rate 0 05/08/19 07:00 Pain Level 0 05/08/19 07:00 Intake & Output 05/07/19 05/07/19 05/08/19 11:59 23:59 11:59 Intake Total 640 / 980 340 / 980 160 / 160 Output Total 520 / 900 380 / 900 Balance 120 / 80 -40 / 80 160 / 160 Weight 108.6 kg Intake: IV 160 / 260 100 / 260 160 / 160 Oral 480 / 720 240 / 720 Output: Urine 520 / 900 380 / 900 Other: Urine Color Light Donna Light Donna Urine Appearance Clear Clear Clear Urine Odor None Comment per patient per patient Voiding Methods Toilet Toilet [facility] Medical History CHF (congestive heart failure) (Acute 04/24/14) Cirrhosis (Suspected 04/24/14) a. possibility raised on CT scan 04/24/2014 COPD (chronic obstructive pulmonary disease) (Suspected) Coronary artery disease (Chronic) a. Ischemic cardiomyopathy with an EF of 30%. b. S/P multiple PCI and stents. c. Ventricular fibrillation arrest in September [address]-Elevation Myocardial infarction. d. S/P coronary artery bypass graft x 2011 e. S/P ICD placement for low EF in 2011. f. drug eluting stent 08/2013 Diabetes mellitus, type 2 (Chronic) Dyspnea (Acute) H/O cardiac arrest (Chronic) History of ventricular tachycardia (Acute) Hyperlipidemia (Chronic) Hypertension (Chronic) Ischemic cardiomyopathy (Acute 04/24/14) Tobacco abuse (Chronic) Unstable angina (Acute) Surgical History AICD (automatic cardioverter/defibrillator) present (Chronic) S/P appendectomy (Inactive) S/P CABG (coronary artery bypass graft) (Chronic) S/P cholecystectomy (Inactive) Social History Smoking/Tobacco Use Status: Current every day Tobacco Type: cigarettes Years smoked: 25 Alcohol Intake: former Drug use: Never Substance use type: does not use What type of physical activity do you participate in: independent ambulation and other Details: patient has a physically demanding job with a lot of walking Do you feel safe at home: Yes Do you feel safe in your relationship?: Yes
--- NOTE | 2019-05-08 09:58 | W.DIABETESNO ---
Date of service: 05/08/19 Time of Service: 09:59 Diabetes Note NOTE: Follow up note: Visited with Mr. Elmore who is concerned he cannot afford his insulin. He has Medicare and has never had this problem. He has already run out of test strips but states prior to this his lowest blood sugar is 100; generally 160 range. A1c 7.8 At home states he takes his 4u with meals and 30u Levemir. States he eats about the same amount of carbohydrate with each meal and he knows how to eat for diabetes. Denies hypoglycemia. Blood sugars this AM 299. Given the steroid, insulin for carbohydrate and a resistant insulin correction would help him with hyperglycemia in the short run. If steroid dosing will be at this level for a period of time, suggest increasing Levemir as well. Time Spent in Nutritional Counseling and Treatment: 5 minutes face to face
--- NOTE | 2019-05-08 17:48 | CMDISCH_ITS ---
- If Service Date Differs Date of service: 05/08/19 Time of Service: 17:48 LACE Index Scoring Tool - Questions: Length of Stay (in days): 2 Acuity (Admit via E.D.?): Yes Comorbidities: Previous M.I., Diabetes w/o Complication, Congestive Heart Failure E.D. Visits: 3 - Answers: Total Score: 13 Risk of Readmission: High Risk Care Management Discharge Reason for Hospitalization: COPD Discharge Plan: Evan will be discharged home and follow up with primary care as directed. [facility] [employer] is going to contact Evan and assist with Medicaid application which he should qualify for. Evan agrees with the plan. CM spoke with Keesha Souza at [facility] will do the follow up. Patient/Family Education Needs: Discharge instructions, limitations and follow up plan of care including ask me three and self management.
== END 2019-05-08 11:45 | disposition home or self-care (01) | DRG 190 ==
LOC: ER 07:12 → MS 07:16
PROVIDERS: Admitting Provider General Practice; Emergency Provider Emergency Medicine; PCP Family Medicine; Visit Provider Family Medicine
DX: J18.9 Pneumonia, unspecified organism; J44.0 Chronic obstructive pulmonary disease with (acute) lower respiratory infection; F17.210 Nicotine dependence, cigarettes, uncomplicated; E11.9 Type 2 diabetes mellitus without complications; E78.5 Hyperlipidemia, unspecified; I10 Essential (primary) hypertension; Z79.4 Long term (current) use of insulin
CPT/HCPCS: 36415; 80053; 93005; 94640; 96361; 96374; 99222; 99238; 99285; 71046; 83735; 84484; 85025; 93010; 99221; J0696; J2930; J3490; J7613; J7620

== ENCOUNTER 2019-06-07 13:23 | Outpatient (CLI) | payer MEDICARE, SELFPAY ==
[2019-06-07 14:23] LABS: INR 1.1 (0.9-1.1)
[2019-06-07 15:16] LABS: Anion Gap 10.3 mmol/L (3-11); BUN 29 mg/dL (7-18); CO2 25.7 mmol/L (21.0-32.0); CREATININE 1.28 mg/dL (0.70-1.30); Calcium 9.1 mg/dL (8.5-10.1); Chloride 98 mmol/L (98-107); Estimated GFR 58.79 (mL/min/1.73m2); Glucose 147 mg/dL (74-106); Potassium 4.9 mmol/L (3.5-5.1); Sodium 134 mmol/L (136-145)
== END 2019-06-07 13:43 ==
PROVIDERS: Family Medicine; PCP Family Medicine; Visit Provider Family Medicine
DX: I50.9 Heart failure, unspecified (principal); I10 Essential (primary) hypertension
CPT/HCPCS: 36415; 80048; 85610

== ENCOUNTER 2019-06-11 08:44 | Outpatient (CLI) | payer MEDICARE, SELFPAY ==
[2019-06-11 09:28] LABS: INR 1.6 (0.9-1.1)
== END 2019-06-11 09:04 ==
PROVIDERS: PCP Family Medicine; Visit Provider Family Medicine
DX: I50.9 Heart failure, unspecified (principal)
CPT/HCPCS: 36415; 85610

== ENCOUNTER 2019-06-13 13:57 | Outpatient (REF) | payer MEDICARE, SELFPAY ==
[2019-06-13 18:48] LABS: Anion Gap 9.4 mmol/L (3-11); BUN 25 mg/dL (7-18); CO2 26.6 mmol/L (21.0-32.0); CREATININE 1.09 mg/dL (0.70-1.30); Calcium 9.3 mg/dL (8.5-10.1); Chloride 99 mmol/L (98-107); Glucose 216 mg/dL (74-106); Potassium 4.6 mmol/L (3.5-5.1); Sodium 135 mmol/L (136-145)
== END 2019-06-13 14:17 ==
LOC: NCHCN 13:57
PROVIDERS: PCP Family Medicine; Visit Provider Family Medicine
DX: I10 Essential (primary) hypertension (principal); I48.0 Paroxysmal atrial fibrillation
CPT/HCPCS: 80048

== ENCOUNTER 2019-08-13 10:17 | Outpatient (REF) | payer MEDICARE, SELFPAY ==
[2019-08-13 15:20] LABS: Anion Gap 11.7 mmol/L (3-11); BUN 22 mg/dL (7-18); CO2 26.3 mmol/L (21.0-32.0); CREATININE 1.44 mg/dL (0.70-1.30); Calcium 9.3 mg/dL (8.5-10.1); Chloride 100 mmol/L (98-107); Estimated GFR 51.32 (mL/min/1.73m2); Glucose 267 mg/dL (74-106); Potassium 3.7 mmol/L (3.5-5.1); Sodium 138 mmol/L (136-145)
[2019-08-13 15:27] LABS: Hemoglobin A1C 8.4 % (3.8-5.6)
== END 2019-08-13 10:37 ==
LOC: NCHCN 10:17
PROVIDERS: PCP Family Medicine; Visit Provider Family Medicine
DX: I50.9 Heart failure, unspecified (principal); E11.9 Type 2 diabetes mellitus without complications; Z79.01 Long term (current) use of anticoagulants
CPT/HCPCS: 80048; 83036

== ENCOUNTER 2019-09-12 13:37 | Emergency (ER) | payer MEDICARE, SELFPAY ==
[2019-09-12] VITALS (33 sets, daily range): BP systolic 94–155; BP diastolic 49–78; PULSE 62–86; RESP 14–26; TEMP 36.6–37; O2SAT 91–98
--- NOTE | 2019-09-12 13:41 | W.ED.GENAD ---
Discharge Plan Disposition Patient Disposition: [facility] Condition: Stable Discharge Details Chief Complaint: SOB Clinical Impression: Syncope, Acute exacerbation of CHF (congestive heart failure), History of implantable cardiac defibrillator (ICD) Primary Care Provider: Beatrice Alcala ED Provider: Sienna Yang Home Meds and New Rx's Prescriptions: No Action Jardiance 10 mg tablet 10 mg PO DAILY RF: 0 insulin aspart U-100 [Novolog Flexpen U-100 Insulin] 100 unit/mL (3 mL) insulin pen 4 unit SC TID RF: 0 metformin 500 mg tablet 1,000 mg PO BID RF: 0 clopidogrel [Plavix] 75 MG tablet 75 mg PO DAILY RF: 0 nitroglycerin 0.4 MG tablet, sublingual 0.4 mg Sublingual PRN RF: 0 spironolactone 25 MG tablet 25 mg PO DAILY RF: 0 isosorbide mononitrate 30 MG tablet extended release 24 hr 30 mg PO DAILY Qty: 30 RF: 0 atorvastatin [Lipitor] 80 MG tablet 40 mg PO DAILY RF: 0 (DME) FreeStyle Lite Strips 1 EACH strip AC & HS RF: 0 (DME) pen needle, diabetic [BD Ultra-Fine Short Pen Needle] 1 EACH needle 1 AC & HS RF: 0 zolpidem 10 MG tablet 10 mg PO HS PRN PRNRF: 0 metolazone 2.5 MG tablet 2.5 mg PO DIRECTED Qty: 24 RF: 1 albuterol sulfate [ProAir HFA] 8.5 GM HFA aerosol inhaler 8.5 gm Inhalation QID PRN PRNQty: 1 RF: 0 Levemir FlexTouch U-100 Insuln 100 UNIT/ML insulin pen 30 units SQ HS RF: 0 lisinopril 10 mg tablet 10 mg PO DAILY RF: 0 torsemide 20 mg Tablet 40 mg PO DAILY RF: 0 warfarin 2.5 mg tablet PO RF: 0 Entresto 24-26 mg tablet 1 tab PO BID RF: 0 (DME) FreeStyle Madi 14 Day Sensor Kit MISCELLANEOUS RF: 0 albuterol sulfate [Ventolin HFA] 90 mcg/actuation Hfa Aerosol Inhaler INHALATION RF: 0 Discharge Data Discharge Date/Time-TO BE ENTERED AT DEPARTURE: 09/12/19 20:23 Medical Decision Making 1350 -- 53yo M with multiple comorbidities and extensive cardiac history including AICD, CABG, CHF, COPD, diabetes, hypertension and hyperlipidemia presents for dyspnea on exertion for the past few days and syncopal episodes x2 today. Patient appears sleepy on arrival. Vitals within normal limits. Lungs clear. 1+ pitting edema bilaterally. EKG notes a rate of 65, sinus, right bundle branch block, no acute ischemic change. Differential diagnosis includes arrhythmia, PE, ACS, acute CHF exacerbation, acute COPD exacerbation, pneumonia, dehydration. Will check screening labs, CT chest and give a dose of Lasix and reassess. 1600 -- Labs and imaging reviewed -white blood cell count 12. INR therapeutic at 2.6. Magnesium 2.2. Negative troponin. BNP 6855. CT chest notes bilateral groundglass opacities consistent with CHF. Patient reassessed -vitals stable. Patient states his abdomen feels less tense after Lasix. Discussed with patient that I would recommend transfer to [facility] for further evaluation of syncope and dyspnea on exertion in setting of CHF exacerbation with history of CABG and AICD. Patient states he does not want to be admitted here or transferred to [facility]. Patient states he understands the risks of and disability but states he cannot afford the medical costs and also does not think that his current condition is anything serious at this time. Case discussed with [facility] cardiology who agrees that patient should be admitted and transferred to [facility]. Dr. Archuleta cardiology at [facility] called patient on his cellphone and convinced him to be transferred and he is now agreeable. Accepting physician Dr. Matos. ICD interrogated at bedside by nurse. [employer] evaluation noted OptiVol crossing which suggest fluid in the lungs but no arrhythmias or device or lead issues noted. 1930 -- Case discussed with [facility] bed placement who has stated there were no ICCU beds available tonight and they initially stated that he would have to stay here overnight. This was discussed with Dr. Alvarez who preferred that patient be at [facility] possibly in the ED awaiting bed placement. Cardiology wanted patient there tonight and bed [facility] while awaiting ICCU placement. Patient remained hemodynamically stable without any acute complaints. Repeat troponin was negative. Medical Records Medical records reviewed: Yes I reviewed the patient's medical records. Imaging Data Radiologic Study: Radiologist's impression: CT CHEST PE CTA CLINICAL HISTORY: sob, syncope, r/o PE TECHNIQUE: COMPARISON: CT CTA BRAIN AND NECK from 07/19/2017 CR,XR XR CHEST 2V PA LATERAL from 05/07/2019 FINDINGS: CT angiography of the chest was performed with bolus infusion of 100 cc of Omnipaque 350. There is significant motion artifact which limits interpretation. Thoracic aorta is non opacified. There is no evidence pulmonary embolic disease. No gross mediastinal or hilar adenopathy seen. There is moderate cardiomegaly. There is coronary artery calcification. There is a transvenous cardiac pacemaker in position. There are mild diffuse ground-glass opacities of both lungs most prominent the perihilar regions, findings suggestive of CHF. No focal consolidation seen. No significant pleural effusion seen. No mediastinal or hilar adenopathy. Images obtained through the upper abdomen show grossly unremarkable appearance of visualized portions of liver, spleen, pancreas, adrenals, and kidneys. There is been a prior cholecystectomy. IMPRESSION: No evidence of pulmonary embolic disease. There is cardiomegaly and diffuse pulmonary ground-glass opacities are present, the findings are suggestive of CHF. Lab Data Lab results reviewed: Yes I reviewed the patient's lab results. Labs: Laboratory Tests Range/Units 09/12/19 09/12/19 09/12/19 13:55 13:55 13:55 WBC (4.4-10.8) k/cumm 12.63 H RBC (4.50-6.00) m/cumm 4.29 L Hgb (13.5-17.5) g/dL 13.6 Hct (40.0-50.0) % 40.2 MCV (80-95) fL 93.7 MCH (27.0-33.0) pg 31.7 MCHC (32.0-36.0) g/dL 33.8 RDW (11.8-14.1) % 15.7 H Plt Count (130-400) x1000/uL 260 MPV (8.0-11.0) fL 10.0 Immature Gran % See Differential Neutrophils % 70.0 Lymphocytes % 24.0 Monocytes % 4.0 Eosinophils % 1.0 Basophils % 0.0 Myelocytes % % 1.0 Absolute Neutrophils (1.2-6.7) k/cumm 8.84 H Absolute Lymphocytes (1.2-3.4) k/cumm 3.03 Absolute Monocytes (0.11-0.7) k/cumm 0.51 Absolute Eosinophils (0.0-0.7) k/cumm 0.13 Absolute Basophils (0.0-0.2) k/cumm 0.00 Differential Comment Manual differential RBC Morphology See below Polychromasia Present PT (9.3-11.0) sec 25.9 H INR (0.9-1.1) 2.6 H APTT (21.0-31.4) sec 33.9 H Sodium (136-145) mmol/L 133 L Potassium (3.5-5.1) mmol/L 4.1 Chloride (98-107) mmol/L 97 L Carbon Dioxide (21.0-32.0) mmol/L 24.3 Anion Gap (3-11) mmol/L 11.7 H BUN (7-18) mg/dL 36 H Creatinine (0.70-1.30) mg/dL 1.60 H Estimated GFR/1.73 m2 (mL/min/1.73m2) 45.44 Glucose (74-106) mg/dL 162 H Calcium (8.5-10.1) mg/dL 8.8 Magnesium (1.8-2.4) mg/dL 2.2 Total Bilirubin (0.2-1.0) mg/dL 1.6 H AST (15-37) U/L 22 ALT (16-63) U/L 30 Alkaline Phosphatase (46-116) U/L 75 Troponin I (<0.06) ng/mL < 0.05 NT-Pro-B Natriuret Pep (<300) pg/mL 6855 H Total Protein (6.4-8.2) g/dL 7.9 Albumin (3.4-5.0) g/dL 3.8 Range/Units 09/12/19 17:20 WBC (4.4-10.8) k/cumm RBC (4.50-6.00) m/cumm Hgb (13.5-17.5) g/dL Hct (40.0-50.0) % MCV (80-95) fL MCH (27.0-33.0) pg MCHC (32.0-36.0) g/dL RDW (11.8-14.1) % Plt Count (130-400) x1000/uL MPV (8.0-11.0) fL Immature Gran % Neutrophils % Lymphocytes % Monocytes % Eosinophils % Basophils % Myelocytes % % Absolute Neutrophils (1.2-6.7) k/cumm Absolute Lymphocytes (1.2-3.4) k/cumm Absolute Monocytes (0.11-0.7) k/cumm Absolute Eosinophils (0.0-0.7) k/cumm Absolute Basophils (0.0-0.2) k/cumm Differential Comment RBC Morphology Polychromasia PT (9.3-11.0) sec INR (0.9-1.1) APTT (21.0-31.4) sec Sodium (136-145) mmol/L Potassium (3.5-5.1) mmol/L Chloride (98-107) mmol/L Carbon Dioxide (21.0-32.0) mmol/L Anion Gap (3-11) mmol/L BUN (7-18) mg/dL Creatinine (0.70-1.30) mg/dL Estimated GFR/1.73 m2 (mL/min/1.73m2) Glucose (74-106) mg/dL Calcium (8.5-10.1) mg/dL Magnesium (1.8-2.4) mg/dL Total Bilirubin (0.2-1.0) mg/dL AST (15-37) U/L ALT (16-63) U/L Alkaline Phosphatase (46-116) U/L Troponin I (<0.06) ng/mL < 0.05 NT-Pro-B Natriuret Pep (<300) pg/mL Total Protein (6.4-8.2) g/dL Albumin (3.4-5.0) g/dL ECG Data Attestation: I personally reviewed and interpreted this ECG (s) as follows: Interpretation: Rate of 65, sinus, first-degree block, right bundle branch block. No acute change from previous EKG. SD 250. QTc 520. QRS 186. HPI General Mode of arrival: wheelchair. Date/Time Provider Initiated Documentation: 09/12/19 13:38. Limitations to Documentation: no limitations. Information obtained by: patient. HPI Narrative: Patient is a 53-year-old male with multiple comorbidities including extensive cardiac history with AICD, CABG, cardiac arrest, ischemic cardiomyopathy, CHF, COPD, hypertension, hyperlipidemia, diabetes, cirrhosis presents with a complaint of shortness of breath with exertion for the past few days and 2 syncopal episodes today. Patient states he is mainly felt short of breath while walking around the past few days. 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 He states he is able to lower himself to the ground denies any injury. He states an ambulance was called and he felt better and he returned to work. He states he began to feel dizzy again and passed out a second time. He again denies any injury. He states he mainly feels tired now. He does admit to occasional chest pressure with onset of shortness of breath. He denies any fever or cough. He was admitted here in April for a COPD exacerbation and pneumonia. Related Data Home Medications Medication Instructions Recorded Confirmed clopidogrel [Plavix] 75 mg PO DAILY 08/14/13 09/12/19 nitroglycerin 0.4 mg SUBLINGUAL PRN 08/14/13 09/12/19 spironolactone 25 mg PO DAILY 04/24/14 09/12/19 isosorbide mononitrate 30 mg PO DAILY #30 tabcr 03/14/15 09/12/19 FreeStyle Lite Strips 07/03/15 05/07/19 atorvastatin [Lipitor] 40 mg PO DAILY 07/03/15 09/12/19 pen needle, diabetic [BD 07/03/15 05/07/19 Ultra-Fine Short Pen Needle] zolpidem 10 mg PO HS PRN PRN 07/03/15 09/12/19 albuterol sulfate [ProAir HFA] 8.5 gm INHALATION QID PRN PRN #1 07/04/15 09/12/19 hfa.[email or web address].ad metolazone 2.5 mg PO DIRECTED #24 07/04/15 09/12/19 Levemir FlexTouch U-100 Insuln 30 units SQ HS 05/01/17 09/12/19 empagliflozin 10 mg tablet 10 mg PO DAILY 04/05/19 05/07/19 insulin aspart U-100 100 unit/mL 4 unit SC TID ml 04/05/19 05/07/19 (3 mL) subcutaneous pen metformin 500 mg tablet 1,000 mg PO BID tab 06/19/19 09/12/19 albuterol sulfate [Ventolin HFA] INHALATION 09/12/19 flash glucose sensor [FreeStyle 09/12/19 09/12/19 Madi 14 Day Sensor] lisinopril 10 mg PO DAILY 09/12/19 09/12/19 sacubitril-valsartan [Entresto] 1 tab PO BID 09/12/19 09/12/19 torsemide 40 mg PO DAILY 09/12/19 09/12/19 warfarin mg PO 09/12/19 Previous Rx's Medication Instructions Recorded isosorbide mononitrate 30 mg PO DAILY #30 tabcr 03/14/15 albuterol sulfate [ProAir HFA] 8.5 gm INHALATION QID PRN PRN #1 07/04/15 hfa.aer.ad metolazone 2.5 mg PO DIRECTED #24 07/04/15 Allergies Allergy/AdvReac Type Severity Reaction Status Date / Time No Known Allergies Allergy Unverified 09/12/19 13:52 General LEVI: 2 Review of Systems All systems reviewed & are unremarkable except as noted in HPI and below Constitutional Constitutional: Reports as per HPI, Denies chills, Reports fatigue and Denies fever(s) Eyes Eyes: Denies blurry vision ENT Ears, Nose, Mouth, and Throat: Denies dizziness, Denies sore throat and Denies throat swelling Cardiovascular Cardiovascular: Denies chest pain and Reports dyspnea Respiratory Respiratory: Denies cough and Reports dyspnea Gastrointestinal Gastrointestinal: Denies abdominal pain, Denies diarrhea and Denies vomiting Genitourinary Genitourinary: Denies hematuria and Denies dysuria Musculoskeletal Musculoskeletal: Denies back pain and Denies numbness Integumentary/Breasts Skin/Breast: Denies lesions and Denies rash Neurologic Neurologic: Denies dizziness, Denies localized weakness and Denies numbness Endocrine Endocrine: Reports fatigue Allergic/Immunologic Allergic/Immunologic: Denies throat swelling PFSH Social History Smoking/Tobacco Use Status: Current every day Tobacco Type: cigarettes Years smoked: 25 Alcohol Intake: former Drug use: Never Substance use type: does not use What type of physical activity do you participate in: independent ambulation and other Details: patient has a physically demanding job with a lot of walking Do you feel safe at home: Yes Do you feel safe in your relationship?: Yes Exam Const General: cooperative, no acute distress and other (falling asleep during exam) Nutritional Appearance: obese centrally obese Orientation: alert, awake and oriented x3 HENMT Head: normal to inspection Face and sinus: normal facial exam Eyes General: appearance normal, both eyes and all related structures EOM: EOM intact bilaterally Neck Neck: normal visual inspection and No submandibular swelling Lymphatic: no lymphadenopathy noted Chest Chest: normal inspection of the chest and no tenderness Resp Effort & Inspection: normal respiratory effort and able to speak in complete sentences Auscultation: clear to auscultation bilaterally Cardio Rate: regular rate Rhythm: regular rhythm GI Inspection: normal to inspection Palpation: soft, not firm, not rigid and nontender Auscultation: normal bowel sounds Skin General skin exam: no rashes or lesions noted Neuro General: patient alert, patient awake and patient oriented x3 Cognition: normal cognition Speech: speech normal Motor: muscle tone normal throughout Sensory Exam: no sensory deficits noted Extrem General: normal to inspection, full ROM, capillary refill normal, no calf tenderness bilaterally and edema Laterality: bilateral (1+ pitting) Psych Appearance: grossly normal Mental Status: mental status grossly normal Speech and Movement: speech and movement normal Affect: normal affect
[2019-09-12 14:18] LABS: Abs Immature Grans 0.04 k/cumm (0.0-0.09); HCT 40.2 % (40.0-50.0); HGB 13.6 g/dL (13.5-17.5); Mean Corp. HGB Concentration 33.8 g/dL (32.0-36.0); Mean Corpuscular Hemoglobin 31.7 pg (27.0-33.0); Mean Corpuscular Volume 93.7 fL (80-95); Platelet Count 260 x1000/uL (130-400); RBC 4.29 m/cumm (4.50-6.00); RBC Distribution Width 15.7 % (11.8-14.1); White Blood Cell Count 12.63 k/cumm (4.4-10.8)
[2019-09-12] MEDS: Furosemide 40 MG/4 ML VIAL IVP (14:29)
[2019-09-12 14:34] LABS: INR 2.6 (0.9-1.1); PTT Activated 33.9 sec (21.0-31.4); Prothrombin Time 25.9 sec (9.3-11.0)
[2019-09-12 14:37] LABS: Absolute Eosinophil Count 0.13 k/cumm (0.0-0.7); Absolute Lymphocyte Count 3.03 k/cumm (1.2-3.4); Absolute Monocyte Count 0.51 k/cumm (0.11-0.7); Absolute Neutrophil Count 8.84 k/cumm (1.2-6.7); Diff Comment Manual Differential; Polychromasia Present
[2019-09-12 14:39] LABS: ALT 30 U/L (16-63); AST 22 U/L (15-37); Albumin 3.8 g/dL (3.4-5.0); Alkaline Phosphatase 75 U/L (46-116); Anion Gap 11.7 mmol/L (3-11); BUN 36 mg/dL (7-18); Bilirubin, Total 1.6 mg/dL (0.2-1.0); CO2 24.3 mmol/L (21.0-32.0); Calcium 8.8 mg/dL (8.5-10.1); Chloride 97 mmol/L (98-107); Estimated GFR 45.44 (mL/min/1.73m2); Glucose 162 mg/dL (74-106); Magnesium 2.2 mg/dL (1.8-2.4); NT-proBNP 6855 pg/mL (<300); Potassium 4.1 mmol/L (3.5-5.1); Sodium 133 mmol/L (136-145); Total Protein 7.9 g/dL (6.4-8.2)
[2019-09-12 14:42] LABS: Troponin I < 0.05 ng/mL (<0.06)
[2019-09-12] MEDS: Omnipaque 350 MG/ML 100 ML BTL IJ (15:11)
[2019-09-12] MEDS: Normal Saline - Diluent 50 ML VIAL IV (15:12)
--- NOTE | 2019-09-12 15:25 | DI.CT_ITS ---
EXAM: CT CHEST PE CTA CLINICAL HISTORY: sob, syncope, r/o PE TECHNIQUE: COMPARISON: CT CTA BRAIN AND NECK from 07/19/2017 CR,XR XR CHEST 2V PA LATERAL from 05/07/2019 FINDINGS: CT angiography of the chest was performed with bolus infusion of 100 cc of Omnipaque 350. There is s ignificant motion artifact which limits interpretation. Thoracic aorta is non opacified. There is n o evidence pulmonary embolic disease. No gross mediastinal or hilar adenopathy seen. There is moder ate cardiomegaly. There is coronary artery calcification. There is a transvenous cardiac pacemaker in position. There are mild diffuse ground-glass opacities of both lungs most prominent the perihilar regions, fin dings suggestive of CHF. No focal consolidation seen. No significant pleural effusion seen. No med iastinal or hilar adenopathy. Images obtained through the upper abdomen show grossly unremarkable appearance of visualized portions of liver, spleen, pancreas, adrenals, and kidneys. There is been a prior cholecystectomy. IMPRESSION: No evidence of pulmonary embolic disease. There is cardiomegaly and diffuse pulmonary ground-glass o pacities are present, the findings are suggestive of CHF.
--- NOTE | 2019-09-12 17:32 | NUR.NOTE ---
pt reported that he felt better after his Lasix . he was planning to refuse admission but after the pacemaker interigation , his funeral pre arrangement specialist spoke to him about coming there for a work up. he is now eating dinner . he anticipates transfer to [facility] and is eating dinner Nursing Note:
[2019-09-12 17:49] LABS: Troponin I < 0.05 ng/mL (<0.06)
[2019-09-13 01:30] LABS: COVID-19 RT-PCR UVMMC Result Negative (Negative)
== END 2019-09-12 20:23 | disposition short-term general hospital (02) ==
PROVIDERS: Emergency Provider Physician Assistant; PCP Family Medicine
DX: I11.0 Hypertensive heart disease with heart failure (principal); I50.23 Acute on chronic systolic (congestive) heart failure; R55 Syncope and collapse; Z95.810 Presence of automatic (implantable) cardiac defibrillator; E11.9 Type 2 diabetes mellitus without complications; Z79.4 Long term (current) use of insulin; I25.10 Atherosclerotic heart disease of native coronary artery without angina pectoris; Z95.1 Presence of aortocoronary bypass graft; J44.9 Chronic obstructive pulmonary disease, unspecified; F17.210 Nicotine dependence, cigarettes, uncomplicated
CPT/HCPCS: 36415; 36416; 71275; 80053; 82962; 93005; 96374; 99285; U0003; 83735; 83880; 84484; 85025; 85610; 85730; 93010; J1940; J3490

== ENCOUNTER 2019-09-23 23:54 | Emergency (ER) | payer MEDICARE, SELFPAY ==
--- NOTE | 2019-09-23 23:45 | DI.RAD_ITS ---
EXAM: XR PORTABLE CHEST AP CLINICAL HISTORY: respiratory arrest TECHNIQUE: 2D digital imaging was performed. COMPARISON: CR,XR XR CHEST 2V PA LATERAL from 05/07/2019 FINDINGS: Gross cardiomegaly and pacemaker are again noted. There are hazy bilateral nonspecific infiltrates. No effusions are visible. No focal area of consolidation is seen. There may be mild vascular promi nence. There is mild peribronchial thickening. IMPRESSION: Cardiomegaly. Question of CHF versus bilateral infiltrates. DATA REPOSITORY: RADIATION DOSE DELIVERED:
[2019-09-24] VITALS (50 sets, daily range): BP systolic 85–124; BP diastolic 24–99; PULSE 47–123; RESP 5–37; TEMP 36.2–36.6; O2SAT 80–99
--- NOTE | 2019-09-24 00:13 | ED.GENADUL_ITS ---
Discharge Plan Disposition Patient Disposition: [facility] Condition: Critical Discharge Details Chief Complaint: SOB Clinical Impression: Acute exacerbation of CHF (congestive heart failure), Multisystem organ failure, Acute respiratory distress, Metabolic acidosis Primary Care Provider: Beatrice Alcala ED Provider: Bernard Munoz Home Meds and New Rx's Prescriptions: No Action Jardiance 10 mg tablet 10 mg PO DAILY RF: 0 insulin aspart U-100 [Novolog Flexpen U-100 Insulin] 100 unit/mL (3 mL) insulin pen 4 unit SC TID RF: 0 metformin 500 mg tablet 1,000 mg PO BID RF: 0 clopidogrel [Plavix] 75 MG tablet 75 mg PO DAILY RF: 0 nitroglycerin 0.4 MG tablet, sublingual 0.4 mg Sublingual PRN RF: 0 spironolactone 25 MG tablet 25 mg PO DAILY RF: 0 isosorbide mononitrate 30 MG tablet extended release 24 hr 30 mg PO DAILY Qty: 30 RF: 0 atorvastatin [Lipitor] 80 MG tablet 40 mg PO DAILY RF: 0 (DME) FreeStyle Lite Strips 1 EACH strip AC & HS RF: 0 (DME) pen needle, diabetic [BD Ultra-Fine Short Pen Needle] 1 EACH needle 1 AC & HS RF: 0 zolpidem 10 MG tablet 10 mg PO HS PRN PRNRF: 0 metolazone 2.5 MG tablet 2.5 mg PO DIRECTED Qty: 24 RF: 1 albuterol sulfate [ProAir HFA] 8.5 GM HFA aerosol inhaler 8.5 gm Inhalation QID PRN PRNQty: 1 RF: 0 Levemir FlexTouch U-100 Insuln 100 UNIT/ML insulin pen 30 units SQ HS RF: 0 lisinopril 10 mg tablet 10 mg PO DAILY RF: 0 torsemide 20 mg Tablet 40 mg PO DAILY RF: 0 warfarin 2.5 mg tablet PO RF: 0 Entresto 24-26 mg tablet 1 tab PO BID RF: 0 (DME) FreeStyle Madi 14 Day Sensor Kit MISCELLANEOUS RF: 0 albuterol sulfate [Ventolin HFA] 90 mcg/actuation Hfa Aerosol Inhaler INHALATION RF: 0 Medical Decision Making Upon my evaluation, this patient had a high probability of imminent or life- threatening deterioration, which required my direct attention, intervention, and personal management. I have personally provided 45 minutes of critical care time exclusive of time spent on separately billable procedures. Time includes review of laboratory data, radiology results, discussion with consultants, and monitoring for potential decompensation. Interventions were performed as documented. 53-year-old male with multiple comorbidities and extensive cardiac history including cardiac arrest potentially leading to AICD for V. tach, CABG, CHF most recent EF of 25%, COPD, diabetes, hypertension and hyperlipidemia who presents today for evaluation of shortness of breath and respiratory distress. Over the last day or so the patient has noted some increasing shortness of breath, this afternoon he went to [facility] ED, work-up at that time was concerning for CHF, he was diuresed, and diuresed a total of 250, chest x-ray was unremarkable per ER physician, aside from a notably enlarged heart. proBNP was elevated. It was recommended that the patient stay overnight, however accepting the risks the patient elected to go home instead. After being discharged the patient stated that he had multiple episodes of vomiting and abdominal pain, EMS was called and the patient was notably short of breath, there is notable difficulty getting a reading for his oxygenation secondary to mottling of his hands and abdomen. Patient denies any chest pain but does obviously admit to notable shortness of breath. Does admit to epigastric pain and tenderness associated with the vomiting. He denies any hematemesis. No known history of aneurysm or dissection. He denies any tearing or ripping sensation. Patient is on anticoagulation with Coumadin and Plavix. Aside for these complaints patient has no other complaints at this time. EMS did note that the patient's blood sugar was in the 60s on their initial assessment, this was brought up with D10. Also of historical context, the saadia durán was recently admitted to [facility] on 09/11, for CHF exacerbation and syncope. Echo at that time showed unchanged EF at 25%, he was transitioned from furosemide to Lasix as the patient felt that Lasix would work better for himself. Additionally his COVID swab was negative at [facility]. Physical exam here in the ED demonstrates notably dyspneic male in acute respiratory distress. He has been started on BiPAP. Mottled extremities, decreased capillary refill, and diminished pulses in all extremities. Abdomen is tender and mildly distended. Pain in the epigastric region. Oxygen saturations in the high 80s on supplemental oxygen. Subjective improvement with BiPAP. Bedside notably limited ultrasound shows an EF of around 25% notably enlarged heart suspicious for dilated cardiomyopathy which seems to correspond with previous echoes. No large pericardial effusion can appreciate. B-lines throughout his lung conley. Differential includes CHF exacerbation, the pain and vomiting may be secondary to a concerning intra-abdominal or thoracic abnormality like aneurysm or dissection. However review of previous visits seems to indicate that he has had symptoms similar to this when he is been diuresed in the past. I do feel though that with his worsening clinical scenario CT imaging is indicated in this setting especially in conjunction with the decreased capillary refill, mottling, and faint pulses in extremities. This may be just secondary to his notably poor EF, or something more malicious. We will keep the patient on BiPAP, monitor closely. He was given both Lasix and spironolactone Teresita. Patient will require admission tonight. 1:15 AM Interrogation of the pacemaker defibrillator demonstrates no abnormal activity or dysrhythmias since September 13, 2019. 1:26 AM Laboratory work-up is starting to return, white count 14, left shift present. We will start Zosyn, ABG demonstrates a pH of 7.22, PCO2 of 22, bicarb of 9, notable metabolic acidosis, anion gap is elevated at 31, concerning lactate of 14.9, glucose 72. Potassium is high at 5.7. Chloride low at 89, bilirubin high at 5.6 in the setting of cholecystectomy, notable transaminitis with an AST of 407 and an ALT of 295. Clinically the patient appears to be demonstrating evidence of systemic endorgan failure, chest x-ray shows concerns for cardiogenic pulmonary edema. Blood pressure is starting to drop slightly being in the low 100s to high 90s systolic. Initial troponin less than 0.05. TSH is 12.39. INR is 6.1. Pressors not yet indicated, however if the patient cont inues to decline do feel that dobutamine may certainly be warranted. Feel that the patient would be better fit for transfer to [facility] with his systemic organ failure, and notable level of acuity at this time. We will facilitate transfer. 2:11 a.m. Discussed the case with cardiology at [facility] Dr. Guajardo, he agrees with the assessment and plan. Does not recommend additional antibiotics aside for the Zosyn, but does recommend starting dopamine at 5 mics per cake per minute. We will start this. Of note on repeat assessment patient is actually starting to do much better, his limbs are now pink and he is less mottled. Pulses are still difficult to discern throughout. Still pending CT scan results. Patient will be transferred to [facility] ICU for further management. 2:[address] scan results have returned, CHF certainly confirmed on this as well, no other significant acute abnormality currently noted requiring emergent management. Patient will be transferred to [facility]. I have extensively reviewed the treatment plan with the patient. I have addressed all patient concerns at this time. I have also discussed the plan with the admitting physician and they agree with the current assessment and plan and have agreed to assume responsibility for the patient. All parties demonstrate verbal understanding and agreement with our assessment and plan at this time. At time of transfer the patient was reassessed and continued to demonstrate improvement of his status. Respiratory effort is notably improved, mentation remains good and is actually improving. EKG 00: 04 Rate 77, sinus rhythm, right bundle branch block, no significant ST elevations or depressions, reviewed from prior EKG shows no significant change in conjunction with comparison from EKG from [place] as well. FINDINGS: Tubes, catheters and devices: There is a left-sided defibrillator device noted. Lungs: Hazy opacities are noted in the bilateral perihilar and mid lung zone regions, which may represent the pulmonary edema. Pleural space: Unremarkable. No pleural effusion. No pneumothorax. Heart/Mediastinum: Cardiomegaly is noted. Bones/joints: Sternotomy wires are in place. IMPRESSION: Cardiomegaly with concern for cardiogenic pulmonary edema. Thank you for allowing us to participate in the care of your patient. Dictated and Authenticated by: Celia Sosa MD 09/24/2019 12:42 AM Eastern Time ([place] & [place]) 1. Cardiomegaly with findings suggestive of diffuse pulmonary edema. Differential diagnosis includes viral pneumonia, which may be excluded clinically. 2. No pneumothorax, pleural effusion or lung mass. IMPRESSION: 1. Thickened urinary bladder alonso, which could be secondary to underdistention versus infectious/inflammatory etiology. Correlate with clinical laboratory findings. 2. Hazy appearance of the upper abdominal fat and right upper quadrant, similar to prior examination, which which may represent nonspecific inflammatory changes. No evidence of bowel obstruction or acute bowel inflammation. Thank you for allowing us to participate in the care of your patient. Dictated and Authenticated by: Celia Sosa MD [facility] General Date/Time Provider Initiated Documentation: 09/24/19 00:42 . HPI Narrative: 53-year-old male with multiple comorbidities and extensive cardiac history including cardiac arrest potentially leading to AICD for V. tach, CABG, CHF most recent EF of 25%, COPD, diabetes, hypertension and hyperlipidemia who presents today for evaluation of shortness of breath and respiratory distress. Over the last day or so the patient has noted some increasing shortness of breath, this afternoon he went to [facility] ED, work-up at that time was concerning for CHF, he was diuresed, and diuresed a total of 250, chest x-ray was unremarkable per ER physician, aside from a notably enlarged heart. proBNP was elevated. It was recommended that the patient stay overnight, however accepting the risks the patient elected to go home instead. After being discharged the patient stated that he had multiple episodes of vomiting and abdominal pain, EMS was called and the patient was notably short of breath, there is notable difficulty getting a reading for his oxygenation secondary to mottling of his hands and abdomen. Patient denies any chest pain but does obviously admit to notable shortness of breath. Does admit to epigastric pain and tenderness associated with the vomiting. He denies any hematemesis. No known history of aneurysm or dissection. He denies any tearing or ripping sensation. Patient is on anticoagulation with Coumadin and Plavix. Aside for these complaints patient has no other complaints at this time. EMS did note that the patient's blood sugar was in the 60s on their initial assessment, this was brought up with D10. Also of historical context, the patient was recently admitted to [facility] on 09/11, for CHF exacerbation and syncope. Echo at that time showed unchanged EF at 25%, he was transitioned from furosemide to Lasix as the patient felt that Lasix would work better for himself. Additionally his COVID swab was negative at [facility]. Related Data Home Medications Medication Instructions Recorded Confirmed clopidogrel [Plavix] 75 mg PO DAILY 08/14/13 09/12/19 nitroglycerin 0.4 mg SUBLINGUAL PRN 08/14/13 09/12/19 spironolactone 25 mg PO DAILY 04/24/14 09/12/19 isosorbide mononitrate 30 mg PO DAILY #30 tabcr 03/14/15 09/12/19 FreeStyle Lite Strips 07/03/15 05/07/19 atorvastatin [Lipitor] 40 mg PO DAILY 07/03/15 09/12/19 pen needle, diabetic [BD 07/03/15 05/07/19 Ultra-Fine Short Pen Needle] zolpidem 10 mg PO HS PRN PRN 07/03/15 09/12/19 albuterol sulfate [ProAir HFA] 8.5 gm INHALATION QID PRN PRN #1 07/04/15 09/12/19 [email or web address] metolazone 2.5 mg PO DIRECTED #24 07/04/15 09/12/19 Levemir FlexTouch U-100 Insuln 30 units SQ HS 05/01/17 09/12/19 empagliflozin 10 mg tablet 10 mg PO DAILY 04/05/19 05/07/19 insulin aspart U-100 100 unit/mL 4 unit SC TID ml 04/05/19 05/07/19 (3 mL) subcutaneous pen metformin 500 mg tablet 1,000 mg PO BID tab 06/19/19 09/12/19 albuterol sulfate [Ventolin HFA] INHALATION 09/12/19 flash glucose sensor [FreeStyle 09/12/19 09/12/19 Madi 14 Day Sensor] lisinopril 10 mg PO DAILY 09/12/19 09/12/19 sacubitril-valsartan [Entresto] 1 tab PO BID 09/12/19 09/12/19 torsemide 40 mg PO DAILY 09/12/19 09/12/19 warfarin mg PO 09/12/19 Previous Rx's Medication Instructions Recorded isosorbide mononitrate 30 mg PO DAILY #30 tabcr 03/14/15 albuterol sulfate [ProAir HFA] 8.5 gm INHALATION QID PRN PRN #1 07/04/15 [email or web address] metolazone 2.5 mg PO DIRECTED #24 07/04/15 Allergies Allergy/AdvReac Type Severity Reaction Status Date / Time No Known Allergies Allergy Unverified 09/12/19 13:52 General Stated Complaint: SOB LEVI: 2 Review of Systems All systems reviewed & are unremarkable except as noted in HPI and below [facility] Social History Smoking/Tobacco Use Status: Current every day Tobacco Type: cigarettes Years smoked: 25 Alcohol Intake: former Drug use: Never Substance use type: does not use What type of physical activity do you participate in: independent ambulation and other Details: 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 3.ENT: Atraumatic external nose and ears. Moist MM. Neck: Symmetric, trachea midline, No thyromegaly. 4.CVS: +S1/S2, No murmurs or gallops. Weak peripheral extremity pulses thro ughout, decreased capillary refill in all extremities. 5.RESP: Notable respiratory distress, tachypnea, gasping, no wheezes or rhonchi. Diminished breath sounds throughout. 6.GI: Slightly tense, mildly distended, tender throughout especially in the epigastrium. No guarding, no rebound. 7.MSK: Normocephalic/Atraumatic, Extremities w/o deformity or ttp . Please see cardiovascular normal movement of all extremities. +2 pitting edema in the lower extremities bilaterally. 8.Skin: Cool in all extremities, mottled his extremities. 9.Neuro: chuck splitter II-XII grossly intact. Sensation grossly intact, no focal neurologic deficits. 10.Psych: (AAO) x3. Appropriate mood and affect Course Vital Signs Vital signs: Vital Signs Pulse 76 09/24/19 00:06 Respiratory Rate 17 09/24/19 00:06 Blood Pressure 124/99 H 09/24/19 00:06 Pulse Oximetry 90 L 09/24/19 00:06 Pulse 76 09/24/19 00:06 Respiratory Rate 22 09/24/19 00:09 Respiratory Effort Incrsd Work of Breathing 09/24/19 00:09 Blood Pressure 124/99 H 09/24/19 00:06 Blood Pressure Position Sitting 09/24/19 00:06 Pulse Oximetry 90 L 09/24/19 00:06 Oxygen Delivery Method Non-Rebreather 09/24/19 00:06
[2019-09-24] MEDS: Ondansetron 4 MG/2 ML VIAL (00:20)
[2019-09-24 00:38] LABS: Lactate 14.9 mmol/L (0.6-1.4)
[2019-09-24 00:39] LABS: Abs Immature Grans 0.13 k/cumm (0.0-0.09); Absolute Basophil Count 0.04 k/cumm (0.0-0.2); Absolute Eosinophil Count 0.01 k/cumm (0.0-0.7); Basophils % 0.3; Eosinophils % 0.1; HGB 14.1 g/dL (13.5-17.5); Mean Corpuscular Hemoglobin 31.2 pg (27.0-33.0); Mean Corpuscular Volume 97.3 fL (80-95); Mean Platelet Volume 10.3 fL (8.0-11.0); Platelet Count 276 x1000/uL (130-400); RBC 4.52 m/cumm (4.50-6.00); RBC Distribution Width 16.3 % (11.8-14.1); White Blood Cell Count 14.61 k/cumm (4.4-10.8)
--- NOTE | 2019-09-24 00:42 | DI.VRAD_ITS ---
PROCEDURE INFORMATION: Exam: XR Chest, 1 View Exam date and time: 09/23/2019 12:13 AM Age: 53 years old Clinical indication: Shortness of breath; Prior surgery; Surgery date: 6+ months; Surgery type: Cabg; Patient HX: Respiratory arrest TECHNIQUE: Imaging protocol: XR of the chest Views: 1 view. COMPARISON: CR XR CHEST 2V PA LATERAL 05/07/2019 5:25 AM FINDINGS: Tubes, catheters and devices: There is a left-sided defibrillator device noted. Lungs: Hazy opacities are noted in the bilateral perihilar and mid lung zone regions, which may represent the pulmonary edema. Pleural space: Unremarkable. No pleural effusion. No pneumothorax. Heart/Mediastinum: Cardiomegaly is noted. Bones/joints: Sternotomy wires are in place. IMPRESSION: Cardiomegaly with concern for cardiogenic pulmonary edema. Dictated and Authenticated by: Celia Sosa MD. Ordering:NINA Wagner MD
[2019-09-24 00:43] LABS: HCO3 9 mmol/L (22-28); pCO2 22 mmHg (34-47); pH 7.22 (7.35-7.45); pO2 45 mmHg (83-108); sO2 85 % (94-98); tCO2 8 mmol/L (22-29)
[2019-09-24 00:46] LABS: FIO2 30% %; Site Left Brachial
[2019-09-24 01:02] LABS: ALT 295 U/L (16-63); AST 407 U/L (15-37); Albumin 4.2 g/dL (3.4-5.0); Alkaline Phosphatase 95 U/L (46-116); Anion Gap 31.6 mmol/L (3-11); BUN 40 mg/dL (7-18); Bilirubin, Total 5.6 mg/dL (0.2-1.0); CO2 15.4 mmol/L (21.0-32.0); CREATININE 3.01 mg/dL (0.70-1.30); Calcium 9.5 mg/dL (8.5-10.1); Chloride 89 mmol/L (98-107); Estimated GFR 21.91 (mL/min/1.73m2); Glucose 72 mg/dL (74-106); Lipase 145 U/L (73-393); Potassium 5.7 mmol/L (3.5-5.1); Sodium 136 mmol/L (136-145); Total Protein 8.7 g/dL (6.4-8.2); Troponin I < 0.05 ng/mL (<0.06)
[2019-09-24 01:03] LABS: NT-proBNP 15597 pg/mL (<300); TSH (W/Ref FT4) 12.39 uIU/mL (0.36-3.74)
[2019-09-24 01:10] LABS: Diff Comment Manual Differential; RBC Morphology Normal
[2019-09-24 01:11] LABS: Absolute Lymphocyte Count 2.78 k/cumm (1.2-3.4); Absolute Monocyte Count 1.02 k/cumm (0.11-0.7); Absolute Neutrophil Count 10.81 k/cumm (1.2-6.7); PTT Activated 36.5 sec (21.0-31.4); Prothrombin Time 58.6 sec (9.3-11.0)
[2019-09-24 01:16] LABS: INR 6.1 (0.9-1.1)
--- NOTE | 2019-09-24 01:20 | DI.CT_ITS ---
EXAM: CT CHEST/ABD/PEL WO CLINICAL HISTORY: resp, distress,CP, Abd pain, mottled ext, faint pulse TECHNIQUE: Imaging Protocol: Axial computed tomography images with coronal and sagittal reformatted images were created and reviewed CONTRAST MATERIAL: Noncontrast Oral: no COMPARISON: CT CT CHEST PE CTA from 09/12/2019 CR,XR XR PORTABLE CHEST AP from 09/24/2019 FINDINGS: CHEST: Thyroid: Unremarkable Tracheobronchial tree: Patent where visualized. Mediastinum and Loly: No dominant adenopathy or fluid collection. Pulmonary parenchyma: There are bilateral ground-glass opacities and intralobular septal thickening w hich could indicate pulmonary edema. There are no effusions. The findings could represent pulmonary edema versus viral pneumonitis. Aorta: Thoracic portion non-dilated. Heart: Heart is again noted to be enlarged. Bones: Degenerative changes in the spine. ABDOMEN: Liver: Normal density. No measurable mass. Gallbladder and biliary tract: S/P cholecystectomy Pancreas: Normal density, no abnormal calcifications or inflammatory process. Spleen: Normal. Kidneys: Normal size, contour and axis. No radiodense stones or obstructive uropathy. No masses seen. Adrenal glands: Stable 2cm right adrenal nodule.. Aorta: Stable mild distal aneurysm. Atherosclerotic calcifications. Lymph nodes: Within normal limits. PELVIS: Bladder: The bladder is not well distended. Bowel: No obstruction or bowel wall thickening. Peritoneal cavity: There is a stable hazy appearance in the mid upper abdominal fat. A small amount of free fluid is seen in the pelvis. Bones: Degenerative changes Reproductive organs: Within normal limits. IMPRESSION: Ground-glass opacities and interlobular septal thickening which may indicate CHF versus viral pneumon itis.. Stable haziness in the mesentery. No acute abnormality is identified. RADIATION DOSE DELIVERED: 1,856.8mGy.cm Total DLP DATA REPOSITORY: All CT scans at this facility are submitted to the National Radiology Data Registry (NRDR) Dose Index Registry (DIR) with the [employer] (A[employer]). RADIATION OPTIMIZATION: All CT scans at this facility use at least one of these dose optimization te chniques: automated exposure control; mA and/or kV adjustment per patient size (includes targeted exa ms where dose is matched to clinical indication); or iterative reconstruction.
[2019-09-24 01:25] LABS: Ammonia 10 umol/L (11-32)
[2019-09-24] MEDS: Albuterol 2.5 MG/3 ML INH SOLN VIAL 7.5 MG UPD (01:31)
[2019-09-24] MEDS: PIPERACILLIN/TAZO 4.5 GM in Normal Saline 100 ML IVPB (01:44)
[2019-09-24] MEDS: DEXTROSE 10%-WATER 500 ML 20 ML IV (02:03)
[2019-09-24] MEDS: DOPamine 400 MG/250 ML BAG 21.675 MG IV (02:09)
--- NOTE | 2019-09-24 02:20 | DI.VRAD_ITS ---
PROCEDURE INFORMATION: Exam: CT Chest Without Contrast Exam date and time: 09/24/2019 1:11 AM Age: 53 years old Clinical indication: Vomiting; Other: Respiratory arrest; Prior surgery; Surgery date: 6+ months; Surgery type: Cabg; Patient HX: Chest pain, abdominal pain, mottles ext, faint pulse TECHNIQUE: Imaging protocol: Computed tomography of the chest without contrast. Radiation optimization: All CT scans at this facility use at least one of these dose optimization techniques: automated exposure control; mA and/or kV adjustment per patient size (includes targeted exams where dose is matched to clinical indication); or iterative reconstruction. COMPARISON: CT CHEST PE CTA 09/12/2019 3:10 PM FINDINGS: Tubes, catheters and devices: There is a left-sided defibrillator device noted in place. Lungs: There is redemonstration of patchy ground-glass opacities and a mosaic appearance throughout the bilateral lung conley. This finding is concerning for diffuse pulmonary edema. Mild septal thickening is noted. Pleural space: Unremarkable. No pneumothorax. No pleural effusion. Heart: Cardiomegaly is noted. Aorta: Unremarkable. No aortic aneurysm. Lymph nodes: Unremarkable. No enlarged lymph nodes. Bones/joints: Median sternotomy changes are noted. There is redemonstration of mild loss in vertebral body height, which may be degenerative in nature. Soft tissues: Unremarkable. IMPRESSION: 1. Cardiomegaly with findings suggestive of diffuse pulmonary edema. Differential diagnosis includes viral pneumonia, which may be excluded clinically. 2. No pneumothorax, pleural effusion or lung mass. PROCEDURE INFORMATION: Exam: CT Abdomen And Pelvis Without Contrast Exam date and time: 09/24/2019 1:11 AM Age: 53 years old Clinical indication: Vomiting; Other: Respiratory arrest; Prior surgery; Surgery date: 6+ months; Surgery type: Cabg; Patient HX: Chest pain, abdominal pain, mottles ext, faint pulse TECHNIQUE: Imaging protocol: Computed tomography of the abdomen and pelvis without contrast. COMPARISON: CT CHEST PE CTA 09/12/2019 3:10 PM FINDINGS: Liver: Normal. No mass. Gallbladder and bile ducts: The patient is status post cholecystectomy. Pancreas: Normal. No ductal dilation. Spleen: Normal. No splenomegaly. Adrenals: A 2 cm partially calcified right adrenal nodule is unchanged. Kidneys and ureters: No hydronephrosis or nephrolithiasis. Stomach and bowel: Unremarkable. No obstruction. No mucosal thickening. Appendix: No evidence of appendicitis. Intraperitoneal space: There is a hazy appearance in the mid upper abdominal fat and right upper quadrant, similar to prior examination. There is a small amount of free fluid noted in the pelvis. Vasculature: There is diffuse calcified atherosclerotic plaque throughout the abdominal aorta and iliac arteries. Lymph nodes: Unremarkable. No enlarged lymph nodes. Bladder: The urinary bladder alonso are thickened, which could be secondary to underdistention versus infectious/inflammatory etiology. Reproductive: Unremarkable as visualized. Bones/joints: Degenerative changes are noted in the upper lumbar spine. No acute fracture. Soft tissues: Unremarkable. IMPRESSION: 1. Thickened urinary bladder alonso, which could be secondary to underdistention versus infectious/inflammatory etiology. Correlate with clinical laboratory findings. 2. Hazy appearance of the upper abdominal fat and right upper quadrant, similar to prior examination, which which may represent nonspecific inflammatory changes. No evidence of bowel obstruction or acute bowel inflammation. Dictated and Authenticated by: Celia Sosa MD. Ordering:NINA Wagner MD
== END 2019-09-24 01:50 | disposition short-term general hospital (02) ==
PROVIDERS: Emergency Provider Student in an Organized Health Care Education/Training Program; PCP Family Medicine
DX: R06.03 Acute respiratory distress; R65.11 Systemic inflammatory response syndrome (SIRS) of non-infectious origin with acute organ dysfunction; E87.2 Acidosis; I11.0 Hypertensive heart disease with heart failure; I50.23 Acute on chronic systolic (congestive) heart failure; E11.649 Type 2 diabetes mellitus with hypoglycemia without coma; R09.02 Hypoxemia; R11.2 Nausea with vomiting, unspecified; R10.13 Epigastric pain; R74.0 Nonspecific elevation of levels of transaminase and lactic acid dehydrogenase [LDH]; E87.5 Hyperkalemia; J44.9 Chronic obstructive pulmonary disease, unspecified; Z86.74 Personal history of sudden cardiac arrest; Z95.810 Presence of automatic (implantable) cardiac defibrillator; Z79.84 Long term (current) use of oral hypoglycemic drugs; Z79.01 Long term (current) use of anticoagulants; F17.210 Nicotine dependence, cigarettes, uncomplicated
CPT/HCPCS: 36416; 51702; 71250; 80053; 82805; 82962; 83690; 93005; 94640; 96365; 96367; 96375; 99291; 71045; 74176; 82140; 83605; 83880; 84439; 84443; 84484; 85025; 85610; 85730; 93010; J0610; J1265; J2405; J2543; J7613